=== PATIENT | male | born 1955 | race Caucasian/White ===

== ENCOUNTER 2016-10-07 00:05 | Observation (INO) | payer BC ==
[2016-10-07] VITALS (7 sets, daily range): BP systolic 136–162; BP diastolic 80–96; PULSE 53–79; TEMP 36.3–36.9; O2SAT 94–99; Ht 181.6 cm; Wt 92.4 kg
[~2016-10-07] VITALS: Ht 181.6 cm; Wt 92.4 kg
[2016-10-07] MEDS ORDERED: SODIUM CHLORIDE 0.9% 1000ML 1,000 ML IV SCH (00:32)
[2016-10-07] MEDS ORDERED: ASPIRIN 81 MG CHEW PO STA (00:40)
[2016-10-07] MEDS ORDERED: TAMS0.4C38 PO (00:42)
[2016-10-07] MEDS ORDERED: DUTA0.5C PO (00:43)
[2016-10-07 00:44] LABS: BASO % 0.3 %; BASO ABS # 0.02 K/uL (0-0.2); COMPLETE YES; EOS % 3.3 %; HEMATOCRIT 43.2 % (42-52); IG% 0.1 %; LYMPH % 40.8 %; LYMPH ABS # 2.86 K/uL (1.2-3.4); MEAN CELL VOLUME 86.6 fL (80-100); MEAN CORPUSCULAR HEMOGLOBIN 28.5 pg (25-34); MEAN CORPUSCULAR HGB CONC 32.9 g/dl (32-36); MEAN PLATELET VOLUME 9.6 fL (7.4-10.4); MONO % 8.1 %; NEUT % 47.4 %; PLATELET COUNT 226 K/uL (130-400); RED BLOOD COUNT 4.99 M/uL (4.7-6.1); WHITE BLOOD COUNT 7.01 K/uL (4.8-10.8)
[2016-10-07] MEDS ORDERED: ACET1TAB84 PO (00:44)
[2016-10-07] MEDS ORDERED: NAPR1TAB9 PO (00:45)
[2016-10-07 00:50] LABS: PARTIAL THROMBOPLASTIN RATIO 1.1; PROTHROMBIN TIME (PATIENT) 10.4 SECONDS (9.0-12.0)
--- NOTE | 2016-10-07 00:53 | EMERGENCY ROOM VISIT NOTE ---
History Report prepared by Jeanie: Merrick Rojas Under the Supervision of: Dr. Deandra Washington D.O. First contact with patient: 00:24 Chief Complaint: NEURO SYMPTOMS Stated Complaint: NUMBNESS,NO FEELING IN RIGHT ARM-SUDDEN ONSET History of Present Illness The patient is a 61 year old male who presents to the Emergency Room with complaints of sudden right arm and hand weakness starting around 2300 that lasted for around an hour. The patient states that his strength has returned 75 % of his normal strength. The patient states that his arm felt like it was asleep, though he could always raise his shoulder above his head. The patient denies any abdominal pain or trouble with looking for words. The patient states that he has a family history of heart attacks, though he does not have any family history of strokes. He additionally states that he does not have hypertension, though he does take two different medications for his prostate. He states that he has not taken aspirin for a long time. Source of History: patient Onset: 2300 Position: arm (right), hand (right) Quality: other (weakness) Timing: other (sudden) Associated Symptoms: No abdominal pain Review of Systems See HPI for pertinent positives & negatives. A total of 10 systems reviewed and were otherwise negative. Past Medical & Surgical Medical Problems: (1) Prostatic hypertrophy (2) TIA (transient ischemic attack) Family History FH: heart attack Social History Smoking Status: Never Smoker Marital Status: Housing Status: lives with family Occupation Status: employed Current/Historical Medications Scheduled Dutasteride (Avodart), 0.5 MG PO QPM Tamsulosin Hcl (Flomax), 0.4 MG PO QPM Scheduled PRN Acetaminophen (Tylenol Arthritis Ext Rel), 650 MG PO QAM PRN for Pain Naproxen (Aleve), 220 MG PO QAM PRN for Pain Allergies Coded Allergies: No Known Allergies (Unverified , 07/31/13) Physical Exam Vital Signs Date Time Temp Pulse Resp B/P (MAP) Pulse Ox O2 Delivery O2 Flow Rate FiO2 10/07/16 01:14 61 16 133/86 96 Room Air 10/07/16 00:32 Room Air 10/07/16 00:26 61 10/07/16 00:10 36.5 66 17 151/89 97 Room Air Physical Exam HEENT: Head - normocephalic and atraumatic. Pupils are equal, round, and reactive to light. Extraocular eye muscles are intact and sclera are anicteric. Ears - bilaterally patent canals with noninjected tympanic membranes and no evidence of hemotympanum. Nose - moist nasal mucosa without discharge. Mouth - moist buccal mucosa. Oropharynx is nonerythematous and there is no tonsillar exudate or edema noted. Neck: Supple; no JVD, nuchal rigidity, cervical lymphadenopathy, or auscultated bruits. Heart: Regular rate and rhythm. There is a normal S1 and S2 with no murmurs, clicks, or gallops appreciated. Lungs: Clear to auscultation bilaterally with no wheezes, rales, or rhonchi. Abdomen: Soft, completely nontender, nondistended, with good bowel sounds. There are no palpable pulsatile masses or hepatosplenomegaly. There is no guarding, rigidity, or rebound noted. Extremities: No evidence of cyanosis, clubbing, or edema. There are easily palpable peripheral pulses. Neuro:The patient is awake and alert, oriented to day, time, and place. Right arm: 4/5 muscle strength, librarian special library strength, and flexion of the biceps. Wrist strength and shoulder abduction was 5/5. The patient has equal pedal push and pull. There are no cerebellar signs. Cranial nerves II-X were intact Medical Decision & Procedures ER Provider Diagnostic Interpretation: Radiology results as stated below per my review and the radiologist's interpretation: CT HEAD: No evidence of acute infarct, hemorrhage, mass or edema. Mild mucosal thickening of the paranasal sinuses. No acute osseous abnormality. Radiologist: Krishan Carney MD Laboratory Results 10/07/16 00:25 Red Blood Count 4.99, Mean Corpuscular Volume 86.6, Mean Corpuscular Hemoglobin 28.5, Mean Corpuscular Hemoglobin Concent 32.9, Mean Platelet Volume 9.6, Neutrophils (%) (Auto) 47.4, Lymphocytes (%) (Auto) 40.8, Monocytes (%) (Auto) 8.1, Eosinophils (%) (Auto) 3.3, Basophils (%) (Auto) 0.3, Neutrophils # (Auto) 3.32, Lymphocytes # (Auto) 2.86, Monocytes # (Auto) 0.57, Eosinophils # (Auto) 0.23, Basophils # (Auto) 0.02 10/07/16 00:25 Test 10/07/16 00:25 10/07/16 01:30 White Blood Count 7.01 K/uL (4.8-10.8) Red Blood Count 4.99 M/uL (4.7-6.1) Hemoglobin 14.2 g/dL (14.0-18.0) Hematocrit 43.2 % (42-52) Mean Corpuscular Volume 86.6 fL (80-100) Mean Corpuscular Hemoglobin 28.5 pg (25-34) Mean Corpuscular Hemoglobin Concent 32.9 g/dl (32-36) Platelet Count 226 K/uL (130-400) Mean Platelet Volume 9.6 fL (7.4-10.4) Neutrophils (%) (Auto) 47.4 % Lymphocytes (%) (Auto) 40.8 % Monocytes (%) (Auto) 8.1 % Eosinophils (%) (Auto) 3.3 % Basophils (%) (Auto) 0.3 % Neutrophils # (Auto) 3.32 K/uL (1.4-6.5) Lymphocytes # (Auto) 2.86 K/uL (1.2-3.4) Monocytes # (Auto) 0.57 K/uL (0.11-0.59) Eosinophils # (Auto) 0.23 K/uL (0-0.5) Basophils # (Auto) 0.02 K/uL (0-0.2) RDW Standard Deviation 43.0 fL (36.4-46.3) RDW Coefficient of Variation 13.6 % (11.5-14.5) Immature Granulocyte % (Auto) 0.1 % Immature Granulocyte # (Auto) 0.01 K/uL (0.00-0.02) Prothrombin Time 10.4 SECONDS (9.0-12.0) Prothromb Time International Ratio 1.0 (0.9-1.1) Activated Partial Thromboplast Time 28.2 SECONDS (21.0-31.0) Partial Thromboplastin Ratio 1.1 Anion Gap 6.0 mmol/L (3-11) Est Creatinine Clear Calc Drug Dose 103.5 ml/min Estimated GFR () 107.5 Estimated GFR (Non- 92.7 BUN/Creatinine Ratio 35.9 (10-20) Calcium Level 8.8 mg/dl (8.5-10.1) Total Creatine Kinase 201 U/L (39-308) Creatine Kinase MB 2.5 ng/ml (0.5-3.6) Creatine Kinase MB Ratio 1.2 (0-3.0) Troponin I < 0.015 ng/ml (0-0.045) Urine Color YELLOW Urine Appearance CLEAR (CLEAR) Urine pH 5.5 (4.5-7.5) Urine Specific [place] 1.027 (1.000-1.030) Urine Protein NEG (NEG) Urine Glucose (UA) NEG (NEG) Urine Ketones NEG (NEG) Urine Occult Blood NEG (NEG) Urine Nitrite NEG (NEG) Urine Bilirubin NEG (NEG) Urine Urobilinogen NEG (NEG) Urine Leukocyte Esterase NEG (NEG) Laboratory results per my review. Medications Administered Medications (Trade) Dose Ordered Sig/Syeda Route Start Time Stop Time Status Last Admin Dose Admin Sodium Chloride 1,000 ml @ 50 mls/hr Q20H IV 10/07/16 00:32 10/07/16 05:02 DC 10/07/16 01:28 50 MLS/HR Aspirin (Aspirin Chew) 324 mg NOW STAT PO 10/07/16 00:40 10/07/16 00:41 DC 10/07/16 01:14 324 MG Sodium Chloride 1,000 ml @ 250 mls/hr Q4H STAT IV 10/07/16 01:53 10/07/16 05:03 DC 10/07/16 02:00 250 MLS/HR Procedure Sodium Chloride IV, Aspirin PO ECG Indication: weakness Rate (beats per minute): 54 Rhythm: sinus bradycardia Findings: no acute ischemic change, no ectopy ED Course 0024: Past medical records reviewed. The patient was evaluated in room C9. A complete history and physical exam was performed. Laboratory studies were drawn as above. Twelve-lead EKG was obtained as described above.. The patient went for stat CT scan of the brain as described above. 0040: Aspirin 324mg PO 0153: The patient's BUN was elevated. I ordered which revealed normal muscle strength in both upper extremities. Sodium Chloride 1000 ml @ 250 mls/hr IV. 0154: I reevaluated the patient, and he states that his symptoms have resolved, and I performed another neuro exam on him 0156: Discussed the patient's case with Dr. Arce. The patient will be evaluated for further management. Medical Decision The patient is a 61 year old male who presents to the ED with right sided weakness. Differential diagnosis includes CVA, TIA, cervical radiculopathy, and cervical myelitis. Lab results show: no leukocytosis, normal H&H, BUN elevated at 32, creatinine of 0.8, glucose 97, cardiac biomarkers are normal, coags are normal, urinalysis is normal. This is a 61-year-old male patient presents to the emergency department with sudden onset of right upper extremity weakness. The patient has never had symptoms like this in the past. He is never suffered a stroke or TIA in the past. While here in the emergency department, the patient's muscle strength has returned to normal. This is certainly concerning for an acute TIA and/or embolic event. The patient will be evaluated by the hospitalist Medication Reconcilliation Current Medication List: was personally reviewed by me Blood Pressure Screening Patient's blood pressure: Elevated blood pressure Blood pressure disposition: Elevated BP felt to be situational Consults Time Called: 0147 Consulting Physician: Dr. Arce Returned Call: [phone] Discussed the patient's case with Dr. Arce. The patient will be evaluated for further management. Impression Primary Impression: TIA (transient ischemic attack) Scribe Attestation The scribe's documentation has been prepared under my direction and personally reviewed by me in its entirety. I confirm that the note above accurately reflects all work, treatment, procedures, and medical decision making performed by me. Departure Information Dispostion Being Evaluated By Hospitalist Referrals No Doctor, Assigned (PCP) Patient Instructions My [facility] Problem Qualifiers Primary Impression: TIA (transient ischemic attack) Transient cerebral ischemia type: unspecified Qualified Codes: G45.9 - Transient cerebral ischemic attack, unspecified
[2016-10-07 01:40] LABS: BLOOD UREA NITROGEN 32 mg/dl (7-18); BUN/CREATININE RATIO 35.9 (10-20); CALCIUM 8.8 mg/dl (8.5-10.1); CARBON DIOXIDE 26 mmol/L (21-32); CHLORIDE 110 mmol/L (98-107); CREATININE 0.88 mg/dl (0.60-1.40); GLUCOSE 97 mg/dl (70-99); SODIUM 142 mmol/L (136-145)
[2016-10-07 01:45] LABS: CKMB/CK RATIO 1.2 (0-3.0)
[2016-10-07 01:45] LABS: URINE APPEARANCE CLEAR (CLEAR); URINE BILIRUBIN NEG (NEG); URINE COLOR YELLOW; URINE NITRITE NEG (NEG); URINE PH 5.5 (4.5-7.5); URINE SPECIFIC GRAVITY 1.027 (1.000-1.030); UROBILINOGEN NEG (NEG); ZZUR CULT IF INDIC CLEAN CATCH NO
[2016-10-07 01:51] LABS: MANUAL MICROSCOPIC REQUIRED? NO; REVIEW REQ? NO
[2016-10-07] MEDS ORDERED: SODIUM CHLORIDE 0.9% 1000ML 1,000 ML IV STA (01:53)
--- NOTE | 2016-10-07 02:11 | History and Physical ---
History & Physical Date & Time of Service: Oct 07, 2016 at 02:11 Chief Complaint: Numbness,No Feeling In Right Arm-Sudden Onset Primary Care Physician: Dharmesh Jones III, M.D. History of Present Illness Source: patient this is a 61 yo Healthy male presented to ER with transient episode of right arm numbness , unable to move the limb As per patient at baseline he is very active , rides bicycle 3 miles to work at [employer] no prior hx of Stoke or CAD no family hx of CVA or CAD last night he was watching TV from 8 pm to 11 pm noticed his right hand and arm became limp , he can not lift his right hand or move the fingers did not had any visual symptoms , no facial drop , no confusion ,no Dysarthria , no weakness on lower ext he could lift his right arm above shoulder , but had no movement at elbow , wrist or fingers he walked to living room to his -his also noted his right arm hanging with wrist deviated inside , pt tried to move his fingers but unable to do so , had no sensation Decided to come to ED with concern for possible stroke like symptom Pt able to walk and get into the car as his was driving -he gradually started to regain sensation in rt hand and arm , able to move the fingers after arrival to ED almost 75-80% symptoms were resolved , except for slight numbness CT Head was unremarkable EKG was NSR during my interview , pt was completely symptom free Motor strength on rt hand and arm was 5/5 with intact fine motor skills , normal sensation no other weakness or deficit noted speech was clear with intact mentation Family History FH: heart attack Social History Smoking Status: Never Smoker Marital Status: Occupational Status: employed Multi-Drug Resistant Organisms History of MDRO: No Allergies Coded Allergies: No Known Allergies (Unverified , 07/31/13) Home Medications Scheduled Dutasteride (Avodart), 0.5 MG PO QPM Tamsulosin Hcl (Flomax), 0.4 MG PO QPM Scheduled PRN Acetaminophen (Tylenol Arthritis Ext Rel), 650 MG PO QAM PRN for Pain Naproxen (Aleve), 220 MG PO QAM PRN for Pain Review of Systems Constitutional: + weakness, + problem reported (rt arm and hand weakness - resolved ) Respiratory: No cough, No sputum, No wheezing, No shortness of breath, No dyspnea on exertion, No dyspnea at rest, No hemoptysis, No problem reported Cardiovascular: No chest pain, No orthopnea, No PND, No edema, No claudication , No palpitations, No problem reported Abdomen: No pain, No nausea, No vomiting, No diarrhea, No constipation, No GI bleeding, No problem reported Musculoskeletal: + problem reported (rt hand /numbness for approx 45 -50 mins - resolved ) Neurologic: + weakness (rt upper ext transient weakness ), + numbness/tingling (rt upper ext ) Physical Exam Vital Signs Date Time Temp Pulse Resp B/P (MAP) Pulse Ox O2 Delivery O2 Flow Rate FiO2 10/07/16 01:14 61 16 133/86 96 Room Air 10/07/16 00:32 Room Air 10/07/16 00:26 61 10/07/16 00:10 36.5 66 17 151/89 97 Room Air General Appearance: WD/WN, no apparent distress Head: normocephalic, atraumatic Eyes: normal inspection, sclerae normal Neck: supple, no JVD, no carotid bruits Respiratory/Chest: chest non-tender, lungs clear, normal breath sounds, no respiratory distress Cardiovascular: regular rate, rhythm Abdomen/GI: normal bowel sounds, non tender, soft Extremities/Musculoskelatal: normal inspection, no calf tenderness, normal capillary refill, no pedal edema Neurologic/Psych: field merchandiser II-XII nml as tested, no motor/sensory deficits, alert, normal mood/affect, normal reflexes, oriented x 3 Diagnostics Laboratory Results Results Past 24 Hours Test 10/07/16 00:25 10/07/16 01:30 Range/Units White Blood Count 7.01 4.8-10.8 K/uL Red Blood Count 4.99 4.7-6.1 M/uL Hemoglobin 14.2 14.0-18.0 g/dL Hematocrit 43.2 42-52 % Mean Corpuscular Volume 86.6 80-100 fL Mean Corpuscular Hemoglobin 28.5 25-34 pg Mean Corpuscular Hemoglobin Concent 32.9 32-36 g/dl Platelet Count 226 130-400 K/uL Mean Platelet Volume 9.6 7.4-10.4 fL Neutrophils (%) (Auto) 47.4 % Lymphocytes (%) (Auto) 40.8 % Monocytes (%) (Auto) 8.1 % Eosinophils (%) (Auto) 3.3 % Basophils (%) (Auto) 0.3 % Neutrophils # (Auto) 3.32 1.4-6.5 K/uL Lymphocytes # (Auto) 2.86 1.2-3.4 K/uL Monocytes # (Auto) 0.57 0.11-0.59 K/uL Eosinophils # (Auto) 0.23 0-0.5 K/uL Basophils # (Auto) 0.02 0-0.2 K/uL RDW Standard Deviation 43.0 36.4-46.3 fL RDW Coefficient of Variation 13.6 11.5-14.5 % Immature Granulocyte % (Auto) 0.1 % Immature Granulocyte # (Auto) 0.01 0.00-0.02 K/uL Prothrombin Time 10.4 9.0-12.0 SECONDS Prothromb Time International Ratio 1.0 0.9-1.1 Activated Partial Thromboplast Time 28.2 21.0-31.0 SECONDS Partial Thromboplastin Ratio 1.1 Sodium Level 142 136-145 mmol/L Potassium Level 4.0 3.5-5.1 mmol/L Chloride Level 110 98-107 mmol/L Carbon Dioxide Level 26 21-32 mmol/L Anion Gap 6.0 3-11 mmol/L Blood Urea Nitrogen 32 7-18 mg/dl Creatinine 0.88 0.60-1.40 mg/dl Est Creatinine Clear Calc Drug Dose 103.5 ml/min Estimated GFR () 107.5 Estimated GFR (Non- 92.7 BUN/Creatinine Ratio 35.9 10-20 Random Glucose 97 70-99 mg/dl Calcium Level 8.8 8.5-10.1 mg/dl Total Creatine Kinase 201 39-308 U/L Creatine Kinase MB 2.5 0.5-3.6 ng/ml Creatine Kinase MB Ratio 1.2 0-3.0 Troponin I < 0.015 0-0.045 ng/ml Urine Color YELLOW Urine Appearance CLEAR CLEAR Urine pH 5.5 4.5-7.5 Urine Specific [place] 1.027 1.000-1.030 Urine Protein NEG NEG Urine Glucose (UA) NEG NEG Urine Ketones NEG NEG Urine Occult Blood NEG NEG Urine Nitrite NEG NEG Urine Bilirubin NEG NEG Urine Urobilinogen NEG NEG Urine Leukocyte Esterase NEG NEG Diagnostic Radiology CT HEAD WITH OUT CONTRAST : no acute change EKG Sinus bradycardia Incomplete right bundle branch block Borderline ECG When compared with ECG of 25-JAN-2006 17:14, No significant change was found Impression Assessment and Plan TIA RULE OUT CVA : presented with motor weakness of rt hand and arm for approx 45 -50 mins happened 11 pm yesterday symptom resolved spontaneously no residual neurological deficit noted CT head w/out contrast negative for acute change MRI of brain with and without contrast /MRA of brain ordered Carotid Doppler for evaluation of carotid stenosis /plaque pt denies of any complain of palpitation or SOB will be monitored in tele for evaluation of arrhythmia pt will be started on Aspirin may need addition of Plavix if MRI finding suggestive of stroke ordered for fasting lipid panel .Hb A1 c in AM lab for risk stratification ECHO for evaluation for cardiac thrombus Neurology eval requested HX OF BPH : cont out pt meds FULL CODE DVT PROPHYLAXIS : low risk very active at baseline scd and teds ambulate DISPOSITION ; expected to be discharged home when medically stable Level of Care Telemetry Resuscitation Status FULL RESUSCITATION VTE Prophylaxis Given or contraindicated: T.E.D. Stockings, SCD's
[2016-10-07] MEDS ORDERED: POLYETHYLENE (MIRALAX) 17 GM PACK PO PRN (02:30)
[2016-10-07] MEDS ORDERED: NAPROXEN 250 MG TAB PO PRN (02:30)
[2016-10-07] MEDS ORDERED: ALUMINUM/MAGNESIUM/SIMETH (MAALOX MAX) 30 ML UDC PO PRN (02:30)
[2016-10-07] MEDS ORDERED: MAGNESIUM HYDROXIDE SUSP 30 ML UDC PO PRN (02:30)
[2016-10-07] MEDS ORDERED: ONDANSETRON INJ 2 MG/ML 2 ML VIAL IV PRN (02:30)
[2016-10-07] MEDS ORDERED: PHARMACIST DISCHARGE MED REC CONSULT PRN (02:30)
[2016-10-07] MEDS ORDERED: IV FLUIDS COMPLETED PRN (03:15)
[2016-10-07] MEDS ORDERED: GADAVIST IV PRN (04:30)
--- NOTE | 2016-10-07 04:57 | Progress Note ---
Progress Note Date of Service Oct 07, 2016. Progress Note got call from Radiologist at [facility] pt had tiny areas of infracts along left anterior cerebral artery and Left post cerebral artery along watershed distribution area MRA of brain unremarkable presented with transient motor weakness of Rt arm -symptom has resolved in setting of acute infract -will cont Aspirin /Plavix added high intensity statin Lipitor 80mg daily note of some tremor /twitching of rt limb noted during MRI scan EEG ordered to R/O Seizure neurology eval requested
--- NOTE | 2016-10-07 06:54 | DIAGNOSTIC IMAGING REPORT ---
CT OF THE HEAD WITHOUT CONTRAST CLINICAL HISTORY: Stroke. Right arm numbness. COMPARISON STUDY: No previous studies for comparison. CT DOSE: 537.48 mGy.cm TECHNIQUE: Helical axial images of the head were obtained without IV contrast. Automated exposure control was utilized for the study. A dose lowering technique was utilized adhering to the principles of ALARA. FINDINGS: No acute intracranial hemorrhage, midline shift or mass effect is present. Ventricular system is normal. Basilar cisterns are patent. No extra-axial collections are present. Wong-white differentiation is maintained. There are no findings to suggest acute territorial infarct or acute dural sinus thrombosis. Visualized portions of the mastoid air cells are clear. There is mild ethmoid sinus mucosal thickening. There are no calvarial abnormalities. IMPRESSION: No acute intracranial findings. Electronically signed by: Juan Antonio Aparicio M.D. 10/07/2016 6:52 AM Dictated Date/Time: 10/07/2016 6:51 AM
--- NOTE | 2016-10-07 07:17 | DIAGNOSTIC IMAGING REPORT ---
Brain MRA HISTORY: Right arm numbness. TECHNIQUE: 3-D [id number] MRA of the brain was performed without contrast. COMPARISON STUDY: Head CT 10/07/2016. FINDINGS: Visualized intracranial internal carotid arteries, distal vertebral arteries, and basilar artery are widely patent. There is no significant stenosis, occlusion, or aneurysm seen within the bilateral ACAs, MCAs, or plant operations manager. IMPRESSION: No significant stenosis, occlusion, or aneurysm within the [place] of [place]. Electronically signed by: Josue Johnson M.D. 10/07/2016 7:15 AM Dictated Date/Time: 10/07/2016 7:12 AM
--- NOTE | 2016-10-07 07:20 | DIAGNOSTIC IMAGING REPORT ---
CAROTID ARTERY ULTRASOUND CLINICAL HISTORY: Stroke COMPARISON STUDY: None. TECHNIQUE: Real-time, grayscale, and color Doppler sonography of the carotid and vertebral arteries was performed. Images were viewed in the transverse and longitudinal planes. FINDINGS: There is extensive atherosclerotic plaque present within the proximal left internal carotid artery. Velocity measurements are listed below. COMMON CAROTID PEAK SYSTOLIC VELOCITY (CM/S): RIGHT 79 LEFT 75 ICA PEAK SYSTOLIC VELOCITY (CM/S): RIGHT 67 LEFT 299 The systolic ratio between the left internal to common carotid artery is elevated at 4. Antegrade flow is seen in the vertebral arteries. The external carotid arteries are patent. Blood pressure could not be obtained in this patient. IMPRESSION: Findings suggestive of greater than 70% stenosis of the proximal left internal carotid artery. Electronically signed by: Juan Antonio Aparicio M.D. 10/07/2016 7:19 AM Dictated Date/Time: 10/07/2016 7:17 AM
--- NOTE | 2016-10-07 07:21 | DIAGNOSTIC IMAGING REPORT ---
MRI OF THE BRAIN COMBO CLINICAL HISTORY: Right arm numbness. Stroke like symptoms. COMPARISON STUDY: CT of the brain dated 10/07/2016. TECHNIQUE: MRI of the brain was performed utilizing various T1 and T2-weighted sequences in the axial, sagittal, and coronal planes. Contrast-enhanced sequences were acquired following the administration of 9 cc of Gadavist. FINDINGS: Brain parenchyma: There are small foci of restricted diffusion identified in the left occipital lobe consistent with acute to subacute ischemia. Additional punctate foci of ischemia are identified in the left posterior parietal and occipital lobes. There is no hemorrhage or mass effect. No enhancing mass lesion is identified on the postcontrast images. There is minimal periventricular microangiopathic disease. No extra-axial fluid collection is seen. The cerebellar tonsils are normal in configuration. Ventricles, sulci, and cisterns: Normal in configuration. Pituitary and sella: Unremarkable. Intracranial vasculature: Normal flow voids are maintained at the skull base. Orbits: The bony orbits are grossly intact. Orbital contents are normal in appearance. Sinuses and mastoids: There is mild mucosal thickening in the left maxillary antrum. The remaining paranasal sinuses and the mastoid air cells are clear. Calvarium: Unremarkable. Cervical cord: Partially visualized cervical spinal cord is normal in morphology and signal intensity. IMPRESSION: 1. There is a small acute to subacute infarct identified in the left occipital lobe. 2. Additional punctate foci of acute ischemia are seen in the left parietal and occipital lobes. 3. There is no hemorrhage or mass effect. Electronically signed by: Lele Kaiser M.D. 10/07/2016 7:19 AM Dictated Date/Time: 10/07/2016 7:14 AM
[2016-10-07] MEDS: AVODART~ORDER AWAITING ACTION SCH ×3 (08:00→23:33)
[2016-10-07 08:01] LABS: CHOLESTEROL/HDL RATIO 3.5
[2016-10-07 08:04] LABS: ESTIMATED AVERAGE GLUCOSE 126 mg/dl; HA1C FLAG Normal (Normal)
[2016-10-07] MEDS: CLOPIDOGREL BISULFATE 75 MG TAB PO SCH (08:12)
[2016-10-07] MEDS: ASPIRIN 81 MG ECTAB PO SCH (08:12)
[2016-10-07] MEDS: ATORVASTATIN 40 MG TAB PO SCH (08:13)
[2016-10-07] MEDS ORDERED: HEPARIN SOD 5000 UNIT/0.5 ML CARP SQ SCH (09:00)
--- NOTE | 2016-10-07 14:15 | ELECTROENCEPHALOGRAPH REPORT ---
REQUESTING PHYSICIAN: Dr. Arce. CLINICAL DIAGNOSIS: Possible seizure activity occurring in the setting of acute left frontal and occipital infarction. ELECTROENCEPHALOGRAM DIAGNOSIS: Essentially normal during wakefulness and drowsiness. DESCRIPTION OF TRACING: This EEG was done as a bedside recording on a man by video analysis who appeared to be initially drowsy. Later on in the tracing he appears to be more awake and EEG does reflect this. Photic stimulation is performed. Hyperventilation is not. Drowsiness is recorded, but fully developed stages of sleep are not seen. Under these conditions, the initial EEG appears to be in a transition state between drowsiness and wakefulness with alpha rhythm transitioning into theta and maximum posterior head regions and bilaterally symmetrical. Polymorphic mid to lower frequency theta activity with occasional waveforms in the delta range are also seen. As the tracing proceeds this activity begins to shift more into a clear wakefulness pattern with eventual development of a background rhythm in the alpha range of 9-10 Hz, amplitude of about 30 microvolts and again symmetry in the posterior head regions. The theta activity seen previously showed some higher frequencies and the delta activity begins to disappear. There are no lateralizing features. Beta activity is seen bifrontally. There are no potentially epileptiform patterns noted either in a focal or generalized fashion. Photic stimulation provokes a modest driving response without photomyogenic or photoparoxysmal component. INTERPRETATION: This EEG is essentially normal during wakefulness and drowsiness without evidence for focal or generalized encephalopathy and without evidence for potentially epileptogenic activity.
[2016-10-07] MEDS ORDERED: OPTIRAY 320 IV PRN (15:30)
--- NOTE | 2016-10-07 15:52 | NEUROLOGY CONSULTATION ---
DATE OF CONSULTATION: 10/07/2016 DATE OF CONSULTATION: 10/07/2016 HISTORY OF PRESENT ILLNESS: Shakeel is 61 years old. Normally follows with Dr. Dharmesh Jones, but sees Gabby Levar most of the time and has been in pretty good health overall. He presented last evening with the abrupt onset of right hand and arm limpness, numbness and clumsiness. He did not have any headaches, visual symptoms, problems with speech or swallowing. No language issues and no problems with his right leg. He began to improve after about an hour or so and he presented to the Emergency Room. By the time he arrived, he was back to about 80% of his baseline. CT head was negative and EKG did not show any atrial fibrillation and a subsequent MRIs and imaging studies have shown several small punctate areas of probable embolic infarction and involving the left middle cerebral artery distribution posteriorly and anteriorly. He has had an unremarkable intracranial MRA, but the carotid duplex show a 70% stenosis of the left internal carotid with extensive plaque formation. He has been appropriately placed on aspirin and Plavix and has had no further events. The past history reveals no defined medical problems other than some BPH and some arthritis. He takes Avodart and Flomax. He does not take aspirin on a regular basis. He was apparently taking and then decided not to. He will take Naprosyn as needed for some arthritic issues in his knees and/or Tylenol, but does so rarely. He has no coded drug allergies. FAMILY HISTORY: Positive for heart attack I believe in his father. SOCIAL HISTORY: Reveals him to be a never smoker. He is . He does not consume significant amount of ethanol and he is currently employed. REVIEW OF SYSTEMS: Reveals only the weakness of the right hand which has now totally resolved, again without headaches or other complaints referable to head, eyes, ears, nose and throat. He denies any palpitations, chest pain, dyspnea, paroxysmal nocturnal dyspnea, cough, hemoptysis, issues with constipation and diarrhea. There has been no hematemesis or hematuria. He does not have any issues other than some BPH and has no problems with the extremities other than some arthritis. Neurologically he denies a history of headaches, similar neurologic events, neck pain, loss or alteration of consciousness, seizure activity, etc. PHYSICAL EXAMINATION: VITAL SIGNS: His blood pressure 133/86, pulse was 61, respirations were 16. GENERAL: He was well-developed, well-nourished and did not appear to be in any distress. HEAD, EYES, EARS, NOSE, AND THROAT: Normal. NECK: Supple. I did not hear any carotid bruits today. LUNGS: Clear. HEART: Had a regular rhythm without murmurs or gallops. ABDOMEN: Soft, nontender, normal bowel sounds. EXTREMITIES: Free of edema. Peripheral pulses are normal. NEUROLOGIC: He is absolutely normal. He is awake, alert, oriented in 3 spheres. His speech is clear. There were no aphasic tendencies. He can repeat, read, and pronounce words quickly and identify objects in the room. Facial motility and strength is normal. Facial sensation is normal. Visual frnech are full. Extraocular movements are normal. Fundi are poorly seen. Facial sensation is intact. There is no facial asymmetry. I do not hear any carotid bruits. There is no drift or pronation sign. Gait, station and coordination testing is normal without spasticity or ataxia. There is no drift or pronation, tremors, tics, choreiform activity. Reflexes are 1+ and symmetrical. Toes are downgoing. No Pancho's signs are seen. Strength is excellent. There is no atrophy. No fasciculations. Sensory examination intact to vibration, light touch and temperature. At this point, my suspicions are that this man has had a series of embolic events originating from the left internal carotid artery, perhaps due to plaque ulceration, perhaps due to accumulation of platelet fibrin material. The issue is academic. His treatment right now is appropriate with aspirin and Plavix for 3 months. I think he is going to need imaging studies to define the vascular anatomy more thoroughly than a duplex and I have discussed the case with Dr. Sue. I think we need to get vascular surgery involved and defer to them regarding whether they want an MRA or CTA and I would tend to prefer the latter. 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 He may well need a vascular surgery intervention within the next several weeks. He has no clinical deficits. I think the current literature would support an aggressive early approach in the setting of a symptomatic plaque. We will see how things go over the next day and hopefully we can get things arranged before the weekend. He really needs to go home to provide care for his wceolo-uh-leb who appears to be stable, so he may be able to be discharged tomorrow if we can get everything in line. LAKEISHA
--- NOTE | 2016-10-07 16:06 | Surgery Consultation ---
Consultation Date of Service Oct 07, 2016. Chief Complaint Transient right arm weakness History of Present Illness The patient is a 61 year old male who developed right arm weakness prior to admission. It came on suddenly and resolved in 30 - 40 minutes. This was the first episode. He did not have any involvement of his right leg, face, or speech. He is a healthy active person. Only medication is for his prostate. Vitals Vital Signs Past 12 Hours Date Time Temp Pulse Resp B/P (MAP) Pulse Ox O2 Delivery O2 Flow Rate FiO2 10/07/16 15:44 36.3 69 16 161/91 (114) 95 10/07/16 15:29 Room Air 10/07/16 12:33 Room Air 10/07/16 11:38 36.4 62 16 146/86 (106) 96 Room Air 10/07/16 07:46 99 Room Air 10/07/16 07:39 36.3 53 18 156/82 (106) 99 Room Air 10/07/16 05:12 36.3 68 16 162/96 99 Room Air Allergies Coded Allergies: No Known Allergies (Unverified , 07/31/13) Home Medications Scheduled Dutasteride (Avodart), 0.5 MG PO QPM Tamsulosin Hcl (Flomax), 0.4 MG PO QPM Scheduled PRN Acetaminophen (Tylenol Arthritis Ext Rel), 650 MG PO QAM PRN for Pain Naproxen (Aleve), 220 MG PO QAM PRN for Pain Problem List Medical Problems: (1) Prostatic hypertrophy (2) TIA (transient ischemic attack) Surgical / Medical History Hx Cardiac Surgery: No Hx Abdominal Surgery: Yes (hernia repair) Hx Cancer Surgery: No Hx Thoracic Surgery: No Hx Orthopedic: No Hx Urinary Tract Surgery: No HX Other Surgery: No Past Medical/Surgical History: CVA/TIA, Male Genitourinary Prob. Family History FH: heart attack Social History Smoking Status: Never Smoker Hx Tobacco Use In Past Year?: No Hx Alcohol Use - Type & Amnt: Yes (occasional drink at home) Hx Substance Use -Type & Amnt: No Review of Systems Constitutional: No chills, No diaphoresis, No fever, No malaise, No weakness, No weight gain, No weight loss, No sweats, No fatigue, No problem reported Eyes: No discharge, No blurred vision, No double vision, No eye pain, No tearing, No itching, No photophobia, No redness, No visual changes, No dryness, No irritation, No problem reported ENMT: No dental pain, No loss of hearing, No epistaxis, No ear discharge, No ear pain, No gum swelling, No mouth pain, No mouth swelling, No nasal congestion , No nasal pain, No rhinorrhea, No stridor, No tinnitus, No sore throat, No throat swelling, No problem reported Respiratory: No cough, No cyanosis, No POTTS, No hemoptysis, No orthopnea, No PND , No short of breath, No sputum production, No stridor, No wheezing, No dyspnea , No problem reported Cardiovascular: No chest pain, No chest tightness, No chest pressure, No palpitations, No syncope, No diaphoresis, No edema, No intermittent claudication , No orthopnea, No cyanosis, No mumur, No lightheadedness, No paroxysmal nocturnal dyspnea, No problem reported Gastrointestinal: No abdominal pain, No constipation, No diarrhea, No nausea, No vomiting, No anorexia, No appetite changes, No belching, No flatulence, No food intolerance, No hematemesis, No hemorrhoids, No hematochezia, No stool changes, No heartburn, No indigestion, No dysphagia, No rectal bleeding, No problem reported Genitourinary - Male: + difficulty urinating, No impotence, No penile discharge , No penile itching, No rash, No testicular pain, No testicular swelling, No hematuria, No problem reported Musculoskeletal: No back pain, No gout, No joint pain, No joint swelling, No muscle pain, No muscle stiffness, No muscle weakness, No neck pain, No problem reported Neurologic: No dizziness, No weakness, No headache, No lethargy, No numbness, No paresthesia, No pre-existing deficit, No seizures, No tics, No tingling, No tremors, No vertigo, No memory loss, No LOC, No problem reported Physical Exam Constitutional: General Apperance: heathly-appearing, well-nourished, well-developed Level of Distress: NAD Psychiatric: Mental Status: active & alert, normal mood, normal affect Orientation: oriented except where noted, to time, to place, to person Memory: recent memory normal, remote memory normal Neck: supple Lungs: Auscultation: breath sounds normal Cardiovascular: Heart Auscultation: RRR Peripheral Pulses: Pulses: full and equal Abdomen: Inspection & Palpation: soft Musculoskeletal: normal Extremities: Upper Right: no cyanosis, no edema, no varicosities, no palpable cord, no clubbing, no ulcers, no mottling Upper Left: no cyanosis, no edema, no palpable cord, no clubbing, no ulcers , no mottling Lower Right: no cyanosis, no edema, no varicosities, no palpable cord, no clubbing, no ulcers, no mottling Lower Left: no cyanosis, no edema, no palpable cord, no clubbing, no ulcers , no mottling, varicosities Neurologic: Cranial Nerves: grossly intact Sensation: grossly intact Assessment and Plan Imp: Left carotid stenosis TIA Plan: Patient for CTA and echo today. If CTA confirms >70% carotid stenosis, would recommend CEA of the left carotid on Monday. I have discussed the risks options and benefits of the procedure with the patient. The patient understands the risks options and benefits and agrees to the procedure. Thank you very much for letting me participate in the care of this patient.
--- NOTE | 2016-10-07 16:31 | DIAGNOSTIC IMAGING REPORT ---
NECK ANGIO WITH CONTRAST CLINICAL HISTORY: 61 years-old Male presenting with left carotid stenosis. TECHNIQUE: Multidetector CT of the neck was performed after the administration of intravenous contrast. IV contrast: 119 mL of Optiray 320 A dose lowering technique was used consistent with the principles of ALARA (as low as reasonably achievable). COMPARISON: Doppler ultrasound from 10/07/2016. CT DOSE (mGy.cm): The estimated cumulative dose is 582.80 mGy.cm. FINDINGS: [employer] topogram: Unremarkable. Three-vessel aortic arch. Tortuosity of the proximal cervical vessels could suggest chronic hypertension. Right common carotid artery patent. Mild calcified atherosclerotic plaque at the right carotid bulb. No significant narrowing of the right internal carotid artery, which is widely patent to the cavernous portion. Left common carotid artery patent with noncalcified and calcified atherosclerotic plaque resulting in narrowing of the carotid bulb. The minimal diameter measures 3 to 4 mm. This narrows both the origin of the left internal and external carotid arteries. The maximal degree of left internal carotid artery narrowing is noted as a consequence of this carotid bulb plaque with a minimal diameter of 3 mm in comparison to the normal distal diameter of 6 mm (at least 50% stenosis). The remainder of the left internal carotid artery is patent to the cavernous portion. Codominant vertebral arteries are widely patent at their origins and along their courses. Limited intracranial evaluation within normal limits. Prominent arachnoid granulation projecting into the left transverse dural venous sinus area Paranasal sinuses with bilateral mucosal thickening of the maxillary sinuses. Degenerative changes of the cervical spine. Lung apices clear. IMPRESSION: Focal narrowing (at least 50% stenosis) at the origin of the left internal carotid artery as a consequence of calcified and noncalcified atherosclerotic plaque. Electronically signed by: Jason Leung M.D. 10/07/2016 4:30 PM Dictated Date/Time: 10/07/2016 4:25 PM
[2016-10-07] MEDS ORDERED: ACETAMINOPHEN 500 MG TAB PO PRN ×2 (19:00→19:30)
[2016-10-07] MEDS ORDERED: NURSING VERBAL MED ORDER ONE (19:15)
[2016-10-07] MEDS ORDERED: TAMSULOSIN HCL 0.4 MG CAP PO SCH (21:00)
[2016-10-08 04:39] VITALS: BP 131/83; PULSE 54; TEMP 36.4; O2SAT 96
[2016-10-08 07:09] VITALS: BP 119/77; PULSE 73; TEMP 36.5; O2SAT 96
[2016-10-08] MEDS: AVODART~ORDER AWAITING ACTION SCH (08:00)
[2016-10-08 08:06] LABS: BUN/CREATININE RATIO 20.2 (10-20); CALCIUM 8.7 mg/dl (8.5-10.1); CREATININE 0.89 mg/dl (0.60-1.40); POTASSIUM 3.7 mmol/L (3.5-5.1)
[2016-10-08] MEDS: ATORVASTATIN 40 MG TAB PO SCH (08:13)
[2016-10-08] MEDS: CLOPIDOGREL BISULFATE 75 MG TAB PO SCH (08:13)
[2016-10-08] MEDS: ASPIRIN 81 MG ECTAB PO SCH (08:13)
[2016-10-08 11:25] VITALS: BP 149/88; PULSE 57; TEMP 36.5; O2SAT 95
--- NOTE | 2016-10-08 13:21 | ECHOCARDIOGRAM REPORT ---
*NOTICE TO RECEIVING CONSTITUTION PARTY AGENCY This information is strictly Confidential and protected under [place] law. [place] law prohibits you from making any further disclosure of this information unless further disclosure is expressly permitted by the written consent of the person to whom it pertains or is authorized by law. A general authorization for the release of medical or other information is not sufficient for this purpose. Hospital accepts no responsibility if the information is made available to any other person, INCLUDING THE PATIENT. Interpretation Summary * Name: VIRGILIO HANSEN Study Date: 10/08/2016 10:00 AM BP: 131/83 mmHg * Patient Location: [facility] HR: 58 * : 1955 (M/d/yyyy) Gender: Male Height: 71 in * Age: 61 yrs Ethnicity: CA Weight: 208 lb * Ordering Physician: Melania Arce * Referring Physician: Self, Referred * Performed By: [facility] RDCS * * Reason For Study: Cerebral ischemia/embolus * BSA: 2.1 m2 * -- Conclusions -- * The left ventricle is normal in size. * There is normal left ventricular wall thickness. * The left ventricular wall motion is normal. * Left ventricular systolic function is normal. * Ejection Fraction = 60-65%. * Aortic valve sclerosis mild, without significant aortic valvular stenosis. * Trace aortic regurgitation. * There is trace mitral regurgitation. * There is trace tricuspid regurgitation. * Doppler findings do not suggest pulmonary hypertension. * The interatrial septum is intact with no evidence for an atrial septal defect. * Injection of contrast documented no interatrial shunt. Procedure Details * A complete two-dimensional transthoracic echocardiogram was performed (2D, M-mode, Doppler and color flow Doppler). * The study was technically adequate. * A saline contrast injection was performed to assess for cardiac shunting. * The injection was performed through an intravenous line in the left arm. * The attending nurse who injected the saline contrast was GABINO Brenner. * A total of 10 cc of agitated saline was given. Left Ventricle * The left ventricle is normal in size. * There is normal left ventricular wall thickness. * Left ventricular systolic function is normal. * Ejection Fraction = 60-65%. * The left ventricular wall motion is normal. Right Ventricle * The right ventricle is normal in size and function. Atria * The left atrial size is normal. * Right atrial size is normal. * The interatrial septum is intact with no evidence for an atrial septal defect. * Injection of contrast documented no interatrial shunt. Mitral Valve * The mitral valve anatomy is normal. * There is no mitral valve stenosis. * There is trace mitral regurgitation. Tricuspid Valve * The tricuspid valve anatomy is normal. * There is no tricuspid stenosis. * There is trace tricuspid regurgitation. * Doppler findings do not suggest pulmonary hypertension. Aortic Valve * The aortic valve is trileaflet. * Aortic valve sclerosis mild, without significant aortic valvular stenosis. * Trace aortic regurgitation. Pulmonic Valve * The pulmonic valve is not well visualized. Great Vessels * The aortic root is normal size. Pericardium/Pleural * There is no pericardial effusion. Great Vessels * Normal inferior vena cava diameter and respiratory variation suggests normal central venous pressure. MMode 2D Measurements and Calculations IVSd 0.91 cm IVSs 1.4 cm LVIDd 4.3 cm LVIDs 2.4 cm LVPWd 0.89 cm LVPWs 1.5 cm IVS/LVPW 1.0 FS 44.3 % EDV(Teich) 81.5 ml ESV(Teich) 19.6 ml EF(Teich) 75.9 % EDV(cubed) 77.6 ml ESV(cubed) 13.4 ml EF(cubed) 82.7 % % IVS thick 55.1 % % LVPW thick 67.0 % LV mass(C)d 121.3 grams LV mass(C)dI 56.6 grams/m\S\2 LV mass(C)s 110.9 grams LV mass(C)sI 51.7 grams/m\S\2 SV(Teich) 61.9 ml SI(Teich) 28.9 ml/m\S\2 SV(cubed) 64.2 ml SI(cubed) 30.0 ml/m\S\2 Ao root diam 3.5 cm Ao root area 9.6 cm\S\2 ACS 1.9 cm LA dimension 4.3 cm asc Aorta Diam 3.3 cm LA/Ao 1.2 LVOT diam 2.2 cm LVOT area 3.7 cm\S\2 LVAd ap4 29.0 cm\S\2 LVLd ap4 8.0 cm EDV(MOD-sp4) 87.0 ml LVAs ap4 15.9 cm\S\2 LVLs ap4 6.4 cm ESV(MOD-sp4) 33.0 ml EF(MOD-sp4) 62.1 % LVAd ap2 27.1 cm\S\2 LVLd ap2 7.9 cm EDV(MOD-sp2) 77.0 ml LVAs ap2 15.7 cm\S\2 LVLs ap2 6.6 cm ESV(MOD-sp2) 30.0 ml EF(MOD-sp2) 61.0 % SV(MOD-sp4) 54.0 ml SI(MOD-sp4) 25.2 ml/m\S\2 SV(MOD-sp2) 47.0 ml SI(MOD-sp2) 21.9 ml/m\S\2 Doppler Measurements and Calculations MV E max cathy 63.6 cm/sec MV A max cathy 48.2 cm/sec MV E/A 1.3 MV dec time 0.20 sec Ao V2 max 131.5 cm/sec Ao max PG 6.9 mmHg Ao max PG (full) 3.2 mmHg ELIEZER(V,A) 2.7 cm\S\2 ELIEZER(V,D) 2.7 cm\S\2 AI max cathy 218.5 cm/sec AI max PG 19.3 mmHg AI dec slope 71.1 cm/sec\S\2 AI P1/2t 900.1 msec LV V1 max PG 3.7 mmHg LV V1 max 96.3 cm/sec PA V2 max 132.8 cm/sec PA max PG 7.1 mmHg PA acc slope 514.0 cm/sec\S\2 PA acc time 0.12 sec PI end-d cathy 87.3 cm/sec TR max cathy 217.6 cm/sec PA pr(Accel) 26.7 mmHg
--- NOTE | 2016-10-08 14:07 | Progress Note ---
Internal Med Progress Note Date of Service: Oct 07, 2016. Provider Documentation: SUBJECTIVE: The patient was seen and examined Very active physically Admitted with sudden numbness of the right UE Condition improve on the way to ER and resolved thereafter OBJECTIVE: Vital Signs-as noted below Exam: General-No distress Eyes-normal ENT-normal Neck-supple Lungs-Clear to ausucltate bilaterally Heart-Regular,no murmur appreciated Abdomen-Benign,no masses,bowel sound present Extremities-NO edema Neuro-AAOx3 No focal Neuro deficit Lab data as noted below. ASSESSMENT & PLAN: TIA ::TO RULE OUT CVA : -presented with motor weakness of rt hand and arm for approx 45 -50 mins -happened 11 pm yesterday -symptom resolved spontaneously -no residual neurological deficit noted -CT head w/out contrast negative for acute change -MRI of brain with and without contrast:::1. There is a small acute to subacute infarct identified in the left occipital lobe. 2. Additional punctate foci of acute ischemia are seen in the left parietal and occipital lobes. 3. There is no hemorrhage or mass effect. MRA ::No significant stenosis, occlusion, or aneurysm within the [place]. Carotid Doppler::Findings suggestive of greater than 70% stenosis of the proximal left internal carotid artery. Started on Aspirin and Plavix -will need for 3 months Started on Statin Fasting lipid panel-unremarkable . ECHO-pending EEG -negative Appreciate Vascular surgery input> CTA of the Neck-More than 50% stenosis of the right ICA Appreciate Neurology input HX OF BPH : cont out pt meds FULL CODE DVT PROPHYLAXIS : low risk very active at baseline scd and teds ambulate DISPOSITION ; expected to be discharged home when medically stable Likely discharge tomorrow Vital Signs: Date Time Temp Pulse Resp B/P (MAP) Pulse Ox O2 Delivery O2 Flow Rate FiO2 10/08/16 12:00 Room Air 10/08/16 11:25 36.5 57 20 149/88 (108) 95 Room Air 10/08/16 08:00 Room Air 10/08/16 07:09 36.5 73 18 119/77 (91) 96 Room Air 10/08/16 04:39 36.4 54 20 131/83 (99) 96 Room Air 10/08/16 04:00 Room Air 10/08/16 00:00 Room Air 10/07/16 23:17 36.9 72 20 145/80 (101) 94 Room Air 10/07/16 20:00 Room Air 10/07/16 19:22 36.9 79 18 136/80 (98) 97 10/07/16 15:44 36.3 69 16 161/91 (114) 95 10/07/16 15:29 Room Air Lab Results: Results Past 24 Hours Test 10/08/16 06:53 Range/Units Sodium Level 140 136-145 mmol/L Potassium Level 3.7 3.5-5.1 mmol/L Chloride Level 106 98-107 mmol/L Carbon Dioxide Level 28 21-32 mmol/L Anion Gap 6.0 3-11 mmol/L Blood Urea Nitrogen 18 7-18 mg/dl Creatinine 0.89 0.60-1.40 mg/dl Est Creatinine Clear Calc Drug Dose 102.1 ml/min Estimated GFR () 107.0 Estimated GFR (Non- 92.3 BUN/Creatinine Ratio 20.2 10-20 Random Glucose 119 70-99 mg/dl Calcium Level 8.7 8.5-10.1 mg/dl
--- NOTE | 2016-10-08 14:19 | Progress Note ---
Internal Med Progress Note Date of Service: Oct 08, 2016. Provider Documentation: SUBJECTIVE: The patient was seen and examined Very active physically Admitted with sudden numbness of the right UE Condition improve on the way to ER and resolved thereafter No new symptoms Ambulating well without any symptoms OBJECTIVE: Vital Signs-as noted below Exam: General-No distress Eyes-normal ENT-normal Neck-supple Lungs-Clear to ausucltate bilaterally Heart-Regular,no murmur appreciated Abdomen-Benign,no masses,bowel sound present Extremities-NO edema Neuro-AAOx3 No focal Neuro deficit Lab data as noted below. ASSESSMENT & PLAN: TIA ::TO RULE OUT CVA : -presented with motor weakness of rt hand and arm for approx 45 -50 mins -happened 11 pm day before admission -symptom resolved spontaneously -no residual neurological deficit noted -CT head w/out contrast negative for acute change -MRI of brain with and without contrast::: 1. There is a small acute to subacute infarct identified in the left occipital lobe. 2. Additional punctate foci of acute ischemia are seen in the left parietal and occipital lobes. 3. There is no hemorrhage or mass effect. MRA ::No significant stenosis, occlusion, or aneurysm within the [place]. Carotid Doppler::Findings suggestive of greater than 70% stenosis of the proximal left internal carotid artery. Started on Aspirin and Plavix -will need for 3 months Started on Statin Fasting lipid panel-unremarkable . ECHO-The left ventricle is normal in size. * There is normal left ventricular wall thickness. * The left ventricular wall motion is normal. * Left ventricular systolic function is normal. * Ejection Fraction = 60-65%. * Aortic valve sclerosis mild, without significant aortic valvular stenosis. * Trace aortic regurgitation. * There is trace mitral regurgitation. * There is trace tricuspid regurgitation. * Doppler findings do not suggest pulmonary hypertension. * The interatrial septum is intact with no evidence for an atrial septal defect. * Injection of contrast documented no interatrial shunt. EEG -negative Appreciate Vascular surgery input> CTA of the Neck-;;Focal narrowing (at least 50% stenosis) at the origin of the left internal carotid artery as a consequence of calcified and noncalcified atherosclerotic plaque. Appreciate Neurology input:embolic source is likely from Left carotid Arterial plaque Appreciate Vascular Surgery input-Left CEA scheduled on Monday10/10/2016 as an OP in [facility] Discussed with the Neurologist and the Vascular surgeon. HX OF BPH : cont out pt meds FULL CODE DVT PROPHYLAXIS : low risk very active at baseline scd and teds ambulate DISPOSITION ; Discharge today Will continue Aspirin and Plavix for 3 months as per Neurology Left CEA on Monday the [address] Toledo Appointment with Dr Jones on 10/12/16 at 1:45 PM Vital Signs: Date Time Temp Pulse Resp B/P (MAP) Pulse Ox O2 Delivery O2 Flow Rate FiO2 10/08/16 12:00 Room Air 10/08/16 11:25 36.5 57 20 149/88 (108) 95 Room Air 10/08/16 08:00 Room Air 10/08/16 07:09 36.5 73 18 119/77 (91) 96 Room Air 10/08/16 04:39 36.4 54 20 131/83 (99) 96 Room Air 10/08/16 04:00 Room Air 10/08/16 00:00 Room Air 10/07/16 23:17 36.9 72 20 145/80 (101) 94 Room Air 10/07/16 20:00 Room Air 10/07/16 19:22 36.9 79 18 136/80 (98) 97 10/07/16 15:44 36.3 69 16 161/91 (114) 95 10/07/16 15:29 Room Air Lab Results: Results Past 24 Hours Test 10/08/16 06:53 Range/Units Sodium Level 140 136-145 mmol/L Potassium Level 3.7 3.5-5.1 mmol/L Chloride Level 106 98-107 mmol/L Carbon Dioxide Level 28 21-32 mmol/L Anion Gap 6.0 3-11 mmol/L Blood Urea Nitrogen 18 7-18 mg/dl Creatinine 0.89 0.60-1.40 mg/dl Est Creatinine Clear Calc Drug Dose 102.1 ml/min Estimated GFR () 107.0 Estimated GFR (Non- 92.3 BUN/Creatinine Ratio 20.2 10-20 Random Glucose 119 70-99 mg/dl Calcium Level 8.7 8.5-10.1 mg/dl
[2016-10-08] MEDS ORDERED: ASPEC81 PO (14:24)
[2016-10-08] MEDS ORDERED: LPT40 PO (14:24)
[2016-10-08] MEDS ORDERED: PLV75 PO (14:24)
--- NOTE | 2016-10-08 14:29 | Discharge Instructions ---
Discharge Instructions Date of Service Oct 08, 2016. Admission Reason for Admission: TIA Discharge Discharge Diagnosis / Problem: TIA,Left Carotid disease Discharge Goals Goal(s): Prevent Disease Progression Activity Recommendations Activity Limitations: resume your previous activity Shower/Bathe: no limitations (Take it easy for the next week or so.) . Instructions / Follow-Up Instructions / Follow-Up DR Jones on 10/12/16 at 1:[address] Toledo on 10/10/16 at 7:00AM at [facility] for OP surgery.No food or Drink or Medications after midnight on Monday. Current Hospital Diet Patient's current hospital diet: AHA Diet (Heart Healthy) Discharge Diet Recommended Diet: AHA Diet (Heart Healthy) Pending Studies Studies pending at discharge: no Laboratory Results Hemoglobin A1c Test 10/07/16 06:38 Range/Units Estimated Average Glucose 126 mg/dl Hemoglobin A1c 6.0 H 4.5-5.6 % Lipid Panel Test 10/07/16 06:38 Range/Units Triglycerides Level 75 0-150 mg/dl Cholesterol Level 201 H 0-200 mg/dl HDL Cholesterol 58 mg/dl Cholesterol/HDL Ratio 3.5 LDL Cholesterol, Calculated 128 mg/dl Medical Emergencies . Who to Call and When: Medical Emergencies: If at any time you feel your situation is an emergency, please call 911 immediately. . Non-Emergent Contact Non-Emergency issues call your: Primary Care Provider . Past History Medical & Surgical History: (1) TIA (transient ischemic attack) (2) Prostatic hypertrophy . "Provider Documentation" section prepared by Lakia Sue. . VTE Core Measure Inpt VTE Proph given/why not?: Bridget Pinzon, PADMINI's
[2016-10-08 15:13] VITALS: BP 144/78; PULSE 70; TEMP 36.9; O2SAT 97
--- NOTE | 2016-10-08 15:14 | Pharmacy Progress Note ---
Pharmacist Stroke Counseling Date of Service Oct 08, 2016. Scope Pharmacy has been consulted to provide medication discharge counseling for this patient admitted with ischemic stroke/ transient ischemic attack as per the Pharmacist Discharge Counseling for Stroke Patients Protocol. Medications on Discharge New Medications: Aspirin (Aspirin EC Low Dose) 81 Mg Ectab 81 MG PO QAM for 30 Days, #30 cContinue for 3 months with Plavix and then continue alone,until advised otherwise Atorvastatin (Atorvastatin Calcium) 40 Mg Tab 80 MG PO QAM for 30 Days, #60 TAB Clopidogrel Bisulfate (Clopidogrel) 75 Mg Tab 75 MG PO QAM for 30 Days, #30 TAB Continue for 3 months as per Neurology until advised otherwise Continued Medications: Acetaminophen (Tylenol Arthritis Ext Rel) 650 Mg Cplt 650 MG PO QAM PRN for Pain Dutasteride (Avodart) 0.5 Mg Cap 0.5 MG PO QPM Tamsulosin Hcl (Flomax) 0.4 Mg Cap 0.4 MG PO QPM Discontinued Medications: Naproxen (Aleve) 220 Mg Tab 220 MG PO QAM PRN for Pain Mr Crowell is a formerly healthy man, except arthritis of the hip, for which he rides a bicycle 3 miles to work daily. He took baby ASA in the past but often forgot. He is familiar with statins since his takes it. He normally takes his medications after breakfast (except Flomax/Avodart at bedtime.) He took the 7-day pillbox, and will try to routinely take his meds. He is scheduled to be readmitted on Tuesday 10/10 for carotid endarterectomy. Action The above medications, specifically ones for stroke treatment/prophylaxis, have been reviewed in detail with the patient prior to discharge. This includes indication, common adverse reactions, drug interactions, and medication administration. Medication counseling has been employed using the teach-back method to ensure understanding. Outcome The patient has demonstrated understanding of the medications. Please note, they are aware that the pharmacist will call them within 72 hours post-discharge to confirm that the appropriate medications are being taken and answer any further medication related questions the patient might have at that time. Contact information Individual to be contacted: Shakeel Crowell Relationship to patient (if applicable): self Phone number: cell [phone] Best time to call: after [phone] when he gets off work. Additional comments: Surgery scheduled 8/[address] Toledo Thank you for allowing pharmacy to be involved in the care of this patient. Please call [phone] or [phone] with any additional questions
[2016-10-08 15:48] VITALS: BP 144/78; PULSE 70; TEMP 36.9; O2SAT 97
--- NOTE | 2016-10-08 15:50 | PROGRESS NOTE ---
DATE: 10/08/2016 DATE: 10/08/2016 Shakeel looks well today. He has had no further TIAs. His exam neurologically remains normal. He is awake, alert, oriented in 3 spheres. He has no cranial neuropathies, visual field cuts, drift or pronation sign, tremor, tics, choreiform activity, asymmetrical reflexes, loss of strength or loss of sensation. He was seen by Dr. Toledo. I refer the reader to Dr. Toledo's note. A CTA was done as I suspected it would. The interpretation shows that there is irregular plaque but the degree of stenosis is estimated to be about 50%. I think Dr. Toledo and I are on the same page on this one. This man has an irregular plaque. He has already had a shower of emboli. He is at risk for more and I think surgery in this setting is indicated no matter what the degree of stenosis is as the plaque is symptomatic. To this end he is going to be discharged and readmitted for outpatient surgery on Monday and have the endarterectomy performed then. Regarding the antiplatelet treatment, I am not sure there are clear charted diaz here. Certainly for stroke due to artery to artery emboli dual antiplatelet therapy is recommended for about 3 months acting on the assumption that surgery or other corrective measures will not be performed. In this case, he is going to have the endarterectomy and I probably would recommend only a single antiplatelet agent for his lifetime after that and of the 2 I would probably pick aspirin simply based on its cost. Dr. Toledo may have another opinion and I will obviously defer to him regarding postoperative management and followup. The patient is going to be seen by his primary care physician, Dr. Jones in followup and I would be happy to look at him in neurology as needed. LAKEISHA
[2016-10-08] MEDS ORDERED: CLOPIDOGREL BISULFATE 75 MG TAB PO SCH (16:00)
[2016-10-08] MEDS ORDERED: ASPIRIN 81 MG ECTAB PO SCH (16:00)
[2016-10-08] MEDS ORDERED: ATORVASTATIN 40 MG TAB PO SCH (16:00)
--- NOTE | 2016-10-09 11:48 | Discharge Summary ---
Discharge Summary Date of Service Oct 09, 2016. Discharge Summary Admission Date: Oct 07, 2016 at 02:12 Discharge Date: Oct 08, 2016 Discharge Disposition: Home Principal Diagnosis: TIA,Left Carotid disease Secondary Diagnoses/Problems: Please see H&P and hospital progress note Consultations: Neurology and Vascular surgery Medication Reconciliation New Medications: Aspirin (Aspirin EC Low Dose) 81 Mg Ectab 81 MG PO QAM for 30 Days, #30 cContinue for 3 months with Plavix and then continue alone,until advised otherwise Atorvastatin (Atorvastatin Calcium) 40 Mg Tab 80 MG PO QAM for 30 Days, #60 TAB Clopidogrel Bisulfate (Clopidogrel) 75 Mg Tab 75 MG PO QAM for 30 Days, #30 TAB Continue for 3 months as per Neurology until advised otherwise Continued Medications: Acetaminophen (Tylenol Arthritis Ext Rel) 650 Mg Cplt 650 MG PO QAM PRN for Pain Dutasteride (Avodart) 0.5 Mg Cap 0.5 MG PO QPM Tamsulosin Hcl (Flomax) 0.4 Mg Cap 0.4 MG PO QPM Discontinued Medications: Naproxen (Aleve) 220 Mg Tab 220 MG PO QAM PRN for Pain Admission Information HPI (per Admitting provider): this is a 61 yo Healthy male presented to ER with transient episode of right arm numbness , unable to move the limb As per patient at baseline he is very active , rides bicycle 3 miles to work at [employer] no prior hx of Stoke or CAD no family hx of CVA or CAD last night he was watching TV from 8 pm to 11 pm noticed his right hand and arm became limp , he can not lift his right hand or move the fingers did not had any visual symptoms , no facial drop , no confusion ,no Dysarthria , no weakness on lower ext he could lift his right arm above shoulder , but had no movement at elbow , wrist or fingers he walked to living room to his -his also noted his right arm hanging with wrist deviated inside , pt tried to move his fingers but unable to do so , had no sensation Decided to come to ED with concern for possible stroke like symptom Pt able to walk and get into the car as his was driving -he gradually started to regain sensation in rt hand and arm , able to move the fingers after arrival to ED almost 75-80% symptoms were resolved , except for slight numbness CT Head was unremarkable EKG was NSR during my interview , pt was completely symptom free Motor strength on rt hand and arm was 5/5 with intact fine motor skills , normal sensation no other weakness or deficit noted speech was clear with intact mentation Family History FH: heart attack Social History Smoking Status: Never Smoker Marital Status: Occupational Status: employed Multi-Drug Resistant Organisms History of MDRO: No Allergies Coded Allergies: No Known Allergies (Unverified , 07/31/13) Home Medications Scheduled Dutasteride (Avodart), 0.5 MG PO QPM Tamsulosin Hcl (Flomax), 0.4 MG PO QPM Scheduled PRN Acetaminophen (Tylenol Arthritis Ext Rel), 650 MG PO QAM PRN for Pain Naproxen (Aleve), 220 MG PO QAM PRN for Pain Review of Systems Constitutional: + weakness, + problem reported (rt arm and hand weakness - resolved ) Respiratory: No cough, No sputum, No wheezing, No shortness of breath, No dyspnea on exertion, No dyspnea at rest, No hemoptysis, No problem reported Cardiovascular: No chest pain, No orthopnea, No PND, No edema, No claudication , No palpitations, No problem reported Abdomen: No pain, No nausea, No vomiting, No diarrhea, No constipation, No GI bleeding, No problem reported Musculoskeletal: + problem reported (rt hand /numbness for approx 45 -50 mins - resolved ) Neurologic: + weakness (rt upper ext transient weakness ), + numbness/tingling (rt upper ext ) Physical Ex - H&P Physical Exam Vital Signs Date Time Temp Pulse Resp B/P (MAP) Pulse Ox O2 Delivery O2 Flow Rate FiO2 10/07/16 01:14 61 16 133/86 96 Room Air 10/07/16 00:32 Room Air 10/07/16 00:26 61 10/07/16 00:10 36.5 66 17 151/89 97 Room Air General Appearance: WD/WN, no apparent distress Head: normocephalic, atraumatic Eyes: normal inspection, sclerae normal Neck: supple, no JVD, no carotid bruits Respiratory/Chest: chest non-tender, lungs clear, normal breath sounds, no respiratory distress Cardiovascular: regular rate, rhythm Abdomen/GI: normal bowel sounds, non tender, soft Extremities/Musculoskelatal: normal inspection, no calf tenderness, normal capillary refill, no pedal edema 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, no motor/sensory deficits, alert, normal mood/affect, normal reflexes, oriented x 3 Diagnostics - H&P Diagnostics Laboratory Results Results Past 24 Hours Test 10/07/16 00:25 10/07/16 01:30 Range/Units White Blood Count 7.01 4.8-10.8 K/uL Red Blood Count 4.99 4.7-6.1 M/uL Hemoglobin 14.2 14.0-18.0 g/dL Hematocrit 43.2 42-52 % Mean Corpuscular Volume 86.6 80-100 fL Mean Corpuscular Hemoglobin 28.5 25-34 pg Mean Corpuscular Hemoglobin Concent 32.9 32-36 g/dl Platelet Count 226 130-400 K/uL Mean Platelet Volume 9.6 7.4-10.4 fL Neutrophils (%) (Auto) 47.4 % Lymphocytes (%) (Auto) 40.8 % Monocytes (%) (Auto) 8.1 % Eosinophils (%) (Auto) 3.3 % Basophils (%) (Auto) 0.3 % Neutrophils # (Auto) 3.32 1.4-6.5 K/uL Lymphocytes # (Auto) 2.86 1.2-3.4 K/uL Monocytes # (Auto) 0.57 0.11-0.59 K/uL Eosinophils # (Auto) 0.23 0-0.5 K/uL Basophils # (Auto) 0.02 0-0.2 K/uL RDW Standard Deviation 43.0 36.4-46.3 fL RDW Coefficient of Variation 13.6 11.5-14.5 % Immature Granulocyte % (Auto) 0.1 % Immature Granulocyte # (Auto) 0.01 0.00-0.02 K/uL Prothrombin Time 10.4 9.0-12.0 SECONDS Prothromb Time International Ratio 1.0 0.9-1.1 Activated Partial Thromboplast Time 28.2 21.0-31.0 SECONDS Partial Thromboplastin Ratio 1.1 Sodium Level 142 136-145 mmol/L Potassium Level 4.0 3.5-5.1 mmol/L Chloride Level 110 98-107 mmol/L Carbon Dioxide Level 26 21-32 mmol/L Anion Gap 6.0 3-11 mmol/L Blood Urea Nitrogen 32 7-18 mg/dl Creatinine 0.88 0.60-1.40 mg/dl Est Creatinine Clear Calc Drug Dose 103.5 ml/min Estimated GFR () 107.5 Estimated GFR (Non- 92.7 BUN/Creatinine Ratio 35.9 10-20 Random Glucose 97 70-99 mg/dl Calcium Level 8.8 8.5-10.1 mg/dl Total Creatine Kinase 201 39-308 U/L Creatine Kinase MB 2.5 0.5-3.6 ng/ml Creatine Kinase MB Ratio 1.2 0-3.0 Troponin I < 0.015 0-0.045 ng/ml Urine Color YELLOW Urine Appearance CLEAR CLEAR Urine pH 5.5 4.5-7.5 Urine Specific [place] 1.027 1.000-1.030 Urine Protein NEG NEG Urine Glucose (UA) NEG NEG Urine Ketones NEG NEG Urine Occult Blood NEG NEG Urine Nitrite NEG NEG Urine Bilirubin NEG NEG Urine Urobilinogen NEG NEG Urine Leukocyte Esterase NEG NEG Diagnostic Radiology CT HEAD WITH OUT CONTRAST : no acute change EKG Sinus bradycardia Incomplete right bundle branch block Borderline ECG When compared with ECG of 25-JAN-2006 17:14, No significant change was found Impression - H&P Impression Assessment and Plan TIA RULE OUT CVA : presented with motor weakness of rt hand and arm for approx 45 -50 mins happened 11 pm yesterday symptom resolved spontaneously no residual neurological deficit noted CT head w/out contrast negative for acute change MRI of brain with and without contrast /MRA of brain ordered Carotid Doppler for evaluation of carotid stenosis /plaque pt denies of any complain of palpitation or SOB will be monitored in tele for evaluation of arrhythmia pt will be started on Aspirin may need addition of Plavix if MRI finding suggestive of stroke ordered for fasting lipid panel .Hb A1 c in AM lab for risk stratification ECHO for evaluation for cardiac thrombus Neurology eval requested HX OF BPH : cont out pt meds FULL CODE DVT PROPHYLAXIS : low risk very active at baseline scd and teds ambulate DISPOSITION ; expected to be discharged home when medically stable Level of Care Telemetry Resuscitation Status FULL RESUSCITATION VTE Prophylaxis Given or contraindicated: T.E.D. 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 There is a small acute to subacute infarct identified in the left occipital lobe. 2. Additional punctate foci of acute ischemia are seen in the left parietal and occipital lobes. 3. There is no hemorrhage or mass effect. MRA ::No significant stenosis, occlusion, or aneurysm within the [place]. Carotid Doppler::Findings suggestive of greater than 70% stenosis of the proximal left internal carotid artery. Started on Aspirin and Plavix -will need for 3 months Started on Statin Fasting lipid panel-unremarkable . ECHO-The left ventricle is normal in size. * There is normal left ventricular wall thickness. * The left ventricular wall motion is normal. * Left ventricular systolic function is normal. * Ejection Fraction = 60-65%. * Aortic valve sclerosis mild, without significant aortic valvular stenosis. * Trace aortic regurgitation. * There is trace mitral regurgitation. * There is trace tricuspid regurgitation. * Doppler findings do not suggest pulmonary hypertension. * The interatrial septum is intact with no evidence for an atrial septal defect. * Injection of contrast documented no interatrial shunt. EEG -negative Appreciate Vascular surgery input> CTA of the Neck-;;Focal narrowing (at least 50% stenosis) at the origin of the left internal carotid artery as a consequence of calcified and noncalcified atherosclerotic plaque. Appreciate Neurology input:embolic source is likely from Left carotid Arterial plaque Appreciate Vascular Surgery input-Left CEA scheduled on Monday10/10/2016 as an OP in [facility] Discussed with the Neurologist and the Vascular surgeon. HX OF BPH : cont out pt meds FULL CODE DVT PROPHYLAXIS : low risk very active at baseline scd and teds ambulate DISPOSITION ; Discharge today Will continue Aspirin and Plavix for 3 months as per Neurology Left CEA on Monday the [address] Toledo Appointment with Dr Jones on 10/12/16 at 1:45 PM Total time spent on discharge = 35 minutes This includes examination of the patient, discharge planning, medication reconciliation, and communication with other providers. Discharge Instructions Date of Service Oct 08, 2016. Admission Reason for Admission: TIA Discharge Discharge Diagnosis / Problem: TIA,Left Carotid disease Discharge Goals Goal(s): Prevent Disease Progression Activity Recommendations Activity Limitations: resume your previous activity Shower/Bathe: no limitations (Take it easy for the next week or so.) . Instructions / Follow-Up Instructions / Follow-Up DR Jones on 10/12/16 at 1:[address] Toledo on 10/10/16 at 7:00AM at [facility] for OP surgery.No food or Drink or Medications after midnight on Monday. Current Hospital Diet Patient's current hospital diet: AHA Diet (Heart Healthy) Discharge Diet Recommended Diet: AHA Diet (Heart Healthy) Pending Studies Studies pending at discharge: no Laboratory Results Hemoglobin A1c Test 10/07/16 06:38 Range/Units Estimated Average Glucose 126 mg/dl Hemoglobin A1c 6.0 H 4.5-5.6 % Lipid Panel Test 10/07/16 06:38 Range/Units Triglycerides Level 75 0-150 mg/dl Cholesterol Level 201 H 0-200 mg/dl HDL Cholesterol 58 mg/dl Cholesterol/HDL Ratio 3.5 LDL Cholesterol, Calculated 128 mg/dl Medical Emergencies . Who to Call and When: Medical Emergencies: If at any time you feel your situation is an emergency, please call 911 immediately. . Non-Emergent Contact Non-Emergency issues call your: Primary Care Provider . Past History Medical & Surgical History: (1) TIA (transient ischemic attack) (2) Prostatic hypertrophy . "Provider Documentation" section prepared by Lakia Sue. . VTE Core Measure Inpt VTE Proph given/why not?: PADMINI [place]'s <Electronically signed by Lakia Sue M.D.> Signed: 10/08/16 2810 Additional Copies To Dharmesh Jones III, M.D.
[2016-10-10] MEDS ORDERED: CEFAZOLIN IV 3,000 MG in DEXTROSE 5% 50ML 50 ML IV SCH (06:00)
[2016-10-11] MEDS ORDERED: OXYC-57 PO (07:41)
--- NOTE | 2016-10-13 17:36 | Pharmacy Progress Note ---
Pharmacist Post D/C Phone Note Date of phone call: Oct 13, 2016. Individual with whom pharmacist spoke to: patient The following questions were reviewed during the phone call with responses listed below each: Can you tell me the medications that you are currently taking as well as when and how you take each medication? - aspirin 81 mg PO daily plus Lipitor 80 mg daily (in addition to Avodart and Flomax) When have you missed any doses of your medications? - no What side effects are you having from your medications? - none What questions do you have about your medications? - why should the patient stop Aleve when starting aspirin --> I informed patient that Aleve will increase his risk of bruising and bleeding pLUS can cause gastric ulcers What problems are you having obtaining your medications? - none When is your next appointment with your primary care doctor? - next Monday Additional comments: - patient had procedure with Dr Toledo and no longer is taking Plavix - this appears consistent with neurology notes As per the Pharmacist Discharge Counseling for Stroke Patients Protocol, this phone call has been completed within 72 hours of discharge. Thank you for allowing us to be involved in the care of this patient.
--- NOTE | 2016-11-04 06:51 | EDITING REQUIRED CODING QUERY ---
CODING CLARIFICATION Due to conflicting information within the record, please clarify below the presence of the TIA: ( + ) TIA was present during this admission ( ) TIA was not present during this admission ( ) Other, please clarify: Thank you for your assistance, Liana Strickland - Stores Despatch Hand
== END 2016-10-08 16:30 | disposition home or self-care (01) ==
LOC: C.EDB 00:06 → C.MED 02:12 → CANRESERV 02:24 → ENRESERV 02:24
PROVIDERS: ADMIT Hospitalist; ATTEND Internal Medicine
DX: G45.9 Transient cerebral ischemic attack, unspecified (principal); R03.0 Elevated blood-pressure reading, without diagnosis of hypertension; N40.0 Benign prostatic hyperplasia without lower urinary tract symptoms; Z82.49 Family history of ischemic heart disease and other diseases of the circulatory system

== ENCOUNTER 2016-10-10 07:10 | Inpatient (IN) | payer BC ==
[2016-10-10] VITALS (9 sets, daily range): BP systolic 126–166; BP diastolic 66–105; PULSE 57–75; TEMP 36.3–36.7; O2SAT 91–100; Ht 180.3 cm; Wt 92.0 kg
[~2016-10-10] VITALS: Ht 180.3 cm; Wt 92.0 kg
[~2016-10-10 07:10] MED LIST: ACET1TAB84 PO; ASPEC81 PO; DUTA0.5C PO; LPT40 PO; PLV75 PO; TAMS0.4C38 PO
--- NOTE | 2016-10-10 09:01 | History & Physical Bridge Note ---
H&P Re-Evaluation Bridge Note: I have examined the patient, reviewed the History & Physical and in the interval since the performance of the History & Physical I have noted the following changes of clinical significance: No changes noted
--- NOTE | 2016-10-10 09:01 | History and Physical ---
History & Physical Date of Service Oct 10, 2016. History & Physical Chief Complaint Transient right arm weakness History of Present Illness The patient is a 61 year old male who developed right arm weakness prior to admission. It came on suddenly and resolved in 30 - 40 minutes. This was the first episode. He did not have any involvement of his right leg, face, or speech. He is a healthy active person. Only medication is for his prostate. Allergies Coded Allergies: No Known Allergies (Unverified , 07/31/13) Home Medications Scheduled Dutasteride (Avodart), 0.5 MG PO QPM Tamsulosin Hcl (Flomax), 0.4 MG PO QPM Scheduled PRN Acetaminophen (Tylenol Arthritis Ext Rel), 650 MG PO QAM PRN for Pain Naproxen (Aleve), 220 MG PO QAM PRN for Pain Problem List Medical Problems: (1) Prostatic hypertrophy (2) TIA (transient ischemic attack) Surgical / Medical History Hx Cardiac Surgery: No Hx Abdominal Surgery: Yes (hernia repair) Hx Cancer Surgery: No Hx Thoracic Surgery: No Hx Orthopedic: No Hx Urinary Tract Surgery: No HX Other Surgery: No Past Medical/Surgical History: CVA/TIA, Male Genitourinary Prob. Family History FH: heart attack Social History Smoking Status: Never Smoker Hx Tobacco Use In Past Year?: No Hx Alcohol Use - Type & Amnt: Yes (occasional drink at home) Hx Substance Use -Type & Amnt: No Review of Systems Constitutional: No chills, No diaphoresis, No fever, No malaise, No weakness, No weight gain, No weight loss, No sweats, No fatigue, No problem reported Eyes: No discharge, No blurred vision, No double vision, No eye pain, No tearing, No itching, No photophobia, No redness, No visual changes, No dryness, No irritation, No problem reported ENMT: No dental pain, No loss of hearing, No epistaxis, No ear discharge, No ear pain, No gum swelling, No mouth pain, No mouth swelling, No nasal congestion , No nasal pain, No rhinorrhea, No stridor, No tinnitus, No sore throat, No throat swelling, No problem reported Respiratory: No cough, No cyanosis, No POTTS, No hemoptysis, No orthopnea, No PND , No short of breath, No sputum production, No stridor, No wheezing, No dyspnea , No problem reported Cardiovascular: No chest pain, No chest tightness, No chest pressure, No palpitations, No syncope, No diaphoresis, No edema, No intermittent claudication , No orthopnea, No cyanosis, No mumur, No lightheadedness, No paroxysmal nocturnal dyspnea, No problem reported Gastrointestinal: No abdominal pain, No constipation, No diarrhea, No nausea, No vomiting, No anorexia, No appetite changes, No belching, No flatulence, No food intolerance, No hematemesis, No hemorrhoids, No hematochezia, No stool changes, No heartburn, No indigestion, No dysphagia, No rectal bleeding, No problem reported Genitourinary - Male: + difficulty urinating, No impotence, No penile discharge , No penile itching, No rash, No testicular pain, No testicular swelling, No hematuria, No problem reported Musculoskeletal: No back pain, No gout, No joint pain, No joint swelling, No muscle pain, No muscle stiffness, No muscle weakness, No neck pain, No problem reported Neurologic: No dizziness, No weakness, No headache, No lethargy, No numbness, No paresthesia, No pre-existing deficit, No seizures, No tics, No tingling, No tremors, No vertigo, No memory loss, No LOC, No problem reported Physical Exam Constitutional: General Apperance: heathly-appearing, well-nourished, well-developed Level of Distress: NAD Psychiatric: Mental Status: active & alert, normal mood, normal affect Orientation: oriented except where noted, to time, to place, to person Memory: recent memory normal, remote memory normal Neck: supple Lungs: Auscultation: breath sounds normal Cardiovascular: Heart Auscultation: RRR Peripheral Pulses: Pulses: full and equal Abdomen: Inspection & Palpation: soft Musculoskeletal: normal Extremities: Upper Right: no cyanosis, no edema, no varicosities, no palpable cord, no clubbing, no ulcers, no mottling Upper Left: no cyanosis, no edema, no palpable cord, no clubbing, no ulcers , no mottling Lower Right: no cyanosis, no edema, no varicosities, no palpable cord, no clubbing, no ulcers, no mottling Lower Left: no cyanosis, no edema, no palpable cord, no clubbing, no ulcers , no mottling, varicosities Neurologic: Cranial Nerves: grossly intact Sensation: grossly intact Assessment and Plan Imp: Left carotid stenosis TIA Plan: Patient for left CEA. I have discussed the risks options and benefits of the procedure with the patient. The patient understands the risks options and benefits and agrees to the procedure.
[2016-10-10] MEDS ORDERED: SODIUM CHLORIDE 0.9% 1000ML 1,000 ML IV ONE (09:35)
[2016-10-10] MEDS ORDERED: CEFAZOLIN SOD 1000MG/55 ML D5W IV ONE (09:49)
[2016-10-10] MEDS ORDERED: CISATRACURIUM BESYLATE IV SOLN 2 MG/ML 10 ML VIAL ONE ×2 (10:31→11:20)
[2016-10-10] MEDS ORDERED: FENTANYL CITRATE INJ 50 MCG/1 ML 2 ML VIAL ONE ×2 (11:20→15:30)
[2016-10-10] MEDS ORDERED: MIDAZOLAM HCL 1 MG/ML 2ML VIAL ONE (11:20)
[2016-10-10] MEDS ORDERED: NEOSTIGMINE METHYLSULFATE 5 MG/5 ML SYR ONE (11:20)
[2016-10-10] MEDS ORDERED: LARYING-O-JET KIT (LTA) ONE ×2 (11:20)
[2016-10-10] MEDS ORDERED: GLYCOPYRROLATE INJ 0.2 MG/ML VIAL ONE ×2 (11:20→15:39)
[2016-10-10] MEDS ORDERED: LABETALOL HCL IV 5 MG/ML 20ML IV ONE (11:20)
[2016-10-10] MEDS ORDERED: DEXAMETHASONE SOD INJ 4 MG/ML VIAL ONE (11:20)
[2016-10-10] MEDS ORDERED: LIDOCAINE HCL 2% 2 ML VIAL (20MG/ML) ONE (11:20)
[2016-10-10] MEDS ORDERED: PHENYLEPHRINE HCL INJ 10 MG/ML VIAL ONE (11:20)
[2016-10-10] MEDS ORDERED: PROPOFOL IV EMULSION 10 MG/ML 20 ML VIAL IV ONE (11:20)
[2016-10-10] MEDS ORDERED: NITROGLYCERIN 5 MG/ML 10 ML VIAL ONE (11:20)
[2016-10-10] MEDS ORDERED: EpHEDrine SULFATE 50MG/5ML SYR ONE (11:20)
[2016-10-10] MEDS ORDERED: ONDANSETRON INJ 2 MG/ML 2 ML VIAL ONE ×2 (11:20→15:47)
[2016-10-10] MEDS ORDERED: THROMBIN FOR SOLN 20000 UNIT KIT ONE (12:12)
[2016-10-10] MEDS ORDERED: BUPIVACAINE/EPINEPHRINE 0.5% MPF 1:200,000 10 ML VIAL ONE (12:12)
[2016-10-10] MEDS ORDERED: GELATIN SPONGE 12-7MM ONE (12:12)
[2016-10-10] MEDS ORDERED: LIDOCAINE HCL 1% 20 ML VIAL ONE (12:13)
[2016-10-10] MEDS ORDERED: HEPARIN SOD (PORCINE) 1000 UNIT/ML 10 ML VIAL ONE ×2 (12:13→14:40)
[2016-10-10] MEDS ORDERED: CEFAZOLIN SOD 1 GM VIAL ONE ×2 (12:13→13:57)
[2016-10-10] MEDS ORDERED: PROTAMINE SULFATE 10 MG/ML 5 ML VIAL IV ONE (14:40)
[2016-10-10] MEDS ORDERED: LABETALOL HCL IV 5 MG/ML 20ML IV PRN (14:45)
[2016-10-10] MEDS ORDERED: EpHEDrine SULFATE INJ 50 MG/ML AMP IV PRN (14:45)
[2016-10-10] MEDS ORDERED: ONDANSETRON INJ 2 MG/ML 2 ML VIAL IV PRN ×2 (14:45→15:45)
[2016-10-10] MEDS ORDERED: PROMETHAZINE HCL INJ 12.5 MG in SODIUM CHLORIDE 0.9% 50ML 50 ML IV PRN (14:45)
[2016-10-10] MEDS ORDERED: FLUMAZENIL 0.1 MG/1 ML 10 ML VIAL IV PRN (14:45)
[2016-10-10] MEDS ORDERED: HYDROmorphone INJ 1 MG/ML SYR IV PRN (14:45)
[2016-10-10] MEDS ORDERED: ATROPINE SULFATE 0.1 MG/ML 5ML SYR IV PRN (14:45)
[2016-10-10] MEDS ORDERED: NALOXONE HCL 0.4 MG/1 ML VIAL/CARP IV PRN (14:45)
[2016-10-10] MEDS ORDERED: EpHEDrine SULFATE INJ 50 MG/ML AMP ONE (15:39)
[2016-10-10] MEDS ORDERED: NITROGLYCERIN/D5W 100 MCG/ML 250 ML IV PRN (15:44)
[2016-10-10] MEDS ORDERED: PHENYLEPHRINE HCL INJ 20 MG in DEXTROSE 5% 500ML 500 ML IV PRN (15:44)
[2016-10-10] MEDS ORDERED: SODIUM NITROPRUSSIDE SOLN INJ 50 MG in DEXTROSE 5% 500ML 500 ML IV PRN (15:44)
--- NOTE | 2016-10-10 15:44 | [facility] Post Operative Brief Note ---
Immediate Operative Summary Operative Date Oct 10, 2016. Pre-Operative Diagnosis Left carotid stenosis TIA Post-Operative Diagnosis Same Procedure(s) Performed Left Carotid Endarterectomy with patch Surgeon Dr Toledo Shoe Treer Surgeon(s) Dr Brennon Sepulveda MD Estimated Blood Loss 80ML Findings ulcerative hemorrhagic plaque, acute Specimens A. left carotid plaque Anesthesia Gen Disposition Recovery Room / PACU
[2016-10-10] MEDS ORDERED: MoRPHine SULFATE 4 MG/ML 1 ML CARP\\VIAL IV PRN (15:45)
[2016-10-10] MEDS ORDERED: OXYCODONE/ACETAMINOPHEN 5-325 TAB PO PRN (15:45)
[2016-10-10] MEDS ORDERED: ACETAMINOPHEN 325 MG TAB PO PRN (15:45)
--- NOTE | 2016-10-10 16:15 | [facility] Operative Report ---
Operative Report Operative Date Oct 10, 2016. Pre-Operative Diagnosis Left carotid stenosis TIA Post-Operative Diagnosis Same Procedure(s) Performed Left Carotid Endarterectomy with patch Surgeon Dr Toledo After [employer] Caregiver Surgeon(s) Dr Brennon Sepulveda MD Estimated Blood Loss 80ML Findings Patient had a ruptured plaque in the distal common/proximal internal carotid artery. Specimens A. left carotid plaque Anesthesia Gen Disposition Recovery Room / PACU Indications 61 year old male who developed right arm weakness prior to admission. It came on suddenly and resolved in 30 - 40 minutes. This was the first episode. He did not have any involvement of his right leg, face, or speech. (Symptomatic carotid stenosis on the left side) Description of Procedure The patient was brought to the operating room, where an arterial line was placed and general anesthesia was secured. The left neck was prepped and sterilely draped. An oblique incision was made along the anterior border of the right sternocleidomastoid muscle. The platysma was divided and dissection was carried down to the carotid sheath. The facial vein was doubly ligated and divided exposing the carotid bifurcation. The vagus nerve and XII nerve were identified and kept free from dissection and retraction. The internal, external , and common carotid arteries were dissected free proximally and distally. 7000 U of Heparin was given intravenously. The external carotid vessels was encircled with vessel loops. Once the heparin was allowed to circulate for approximately 5 minutes, clamps were placed starting with the internal carotid and common carotid and external carotid. An anterior arteriotomy was made on the common carotid artery using an 11 blade. Izquierdo scissors was used to extend the arteriotomy through the plaque on to the distal soft internal carotid artery. The plaque was calcified and ulcerated. A shunt was then inserted into the into the internal carotid artery and revealed good backbleeding. The proximal end of the shunt was then inserted into the common carotid artery and secured in place. The Doppler attached to the shunt was turned on and revealed good flow through the shunt. A [place] elevator was used to create an endarterectomy plane. The proximal endpoint was created using Izquierdo scissors. The plaque was freed out of the external carotid artery.With downward retraction on the plaque, a smooth distal endpoint was created. All debris was meticulously debrided from the inside of the lumen and confirmed with instillation of heparinized saline. 1 tacking sutures was placed at common carotid artery to tach down the intima. Once endarterectomy was completed, an Aquacel patch was then cut to the appropriate size and sewn into internal carotid artery using a PTFE 6-0 sutures starting at the internal carotid artery corner of the arteriotomy. Before the patch was completed, the shunt was pulled and all the arteries were backbleed extruding any air and debris. The patch was then completed. The external carotid clamp was removed first, followed by the common carotid artery clamp, and finally the internal carotid artery clamp, restoring blood flow to the brain. Patient did have some oozing a 6-0 Prolene was used to achieve hemostasis as well as thrombin soaked gel foam and Surgicel. Meticulous hemostasis was secured. The wound was then closed in multiple layers using 3-0 Vicryl suture then a 4-0 Vicryl subcutaneous layer closing the skin. Dermabond was applied over the incision. The patient tolerated the procedure well and was extubated on table. The patient was moving all four extremities to command prior to and upon transfer to the recovery room. Dr. Toledo was present and scrubbed for the entirety of the case. I, Dr. Toledo was present and scrubbed for the entire procedure. I attest to the content of the Intraoperative Record and any orders documented therein. Any exceptions are noted below.
--- NOTE | 2016-10-10 16:57 | Anesthesiology Progress Note ---
Anesthesia Post Op Note Date & Time Oct 10, 2016 at 16:57 Vital Signs Pain Intensity: 0 Vital Signs Past 12 Hours Date Time Temp Pulse Resp B/P (MAP) Pulse Ox O2 Delivery O2 Flow Rate FiO2 10/10/16 16:50 55 18 128/72 99 Nasal Cannula 2 10/10/16 16:40 53 16 131/74 99 Nasal Cannula 2 10/10/16 16:30 54 14 123/80 100 Oxymask 10 10/10/16 16:20 61 12 122/76 100 Oxymask 10 10/10/16 16:12 36.0 55 16 135/84 100 Oxymask 10 10/10/16 09:30 36.3 65 20 147/98 100 Room Air Notes Mental Status: alert / awake / arousable, participated in evaluation Pt Amnestic to Procedure: Yes Nausea / Vomiting: adequately controlled Pain: adequately controlled Airway Patency, RR, SpO2: stable & adequate BP & HR: stable & adequate Hydration State: stable & adequate Anesthetic Complications: no major complications apparent
[2016-10-10] MEDS: D5W AND 1/2NSS 1,000 ML IV SCH ×2 (17:30→23:44)
--- NOTE | 2016-10-10 18:05 | Critical Care Consultation ---
Critical Care Consultation Date of Consultation: Oct 10, 2016. Attending Physician: Channing Toledo M.D. Reason for Consultation: Post op for left carotid endarterectomy History of Present Illness 61 year old male who developed right hand and arm weakness on 10/06/2016 at 11pm. He was unable to lift his right hand or move his fingers so he came to the ED. His symptoms starting resolving on his way to the ED and by the time he was seen by the hospitalist his symptoms had fully resolved.. He was admitted to the hospital for a stroke workup. An EKG showed NSR. He had a CT of his head without contrast which was negative. MRI of brain showed an acute infarct in the occipital lobe and punctuate foci in the left parietal and occipital lobe. He had a carotid doppler which showed 70% stenosis of the left proximal internal carotid artery. The patient was discharged on 10/08/17 on aspirin and plavix for 3 months and was scheduled for a left CEA on 10/10/2016 as an outpatient. He had the procedure this morning with Dr. Toledo without any complications and was asked for a consult from the freight shipping agent Past Medical/Surgical History Benign Prostatic Hyperplasia Family History FH: heart attack Social History Smoking Status: Never Smoker Alcohol Use: occasionally Drug Use: none Marital Status: Housing Status: lives with family Occupation Status: employed Allergies Coded Allergies: No Known Allergies (Verified , 10/10/16) Home Medications Scheduled Aspirin (Aspirin EC Low Dose), 81 MG PO QAM Atorvastatin (Atorvastatin Calcium), 80 MG PO QAM Clopidogrel Bisulfate (Clopidogrel), 75 MG PO QAM Dutasteride (Avodart), 0.5 MG PO QPM Tamsulosin Hcl (Flomax), 0.4 MG PO QPM Scheduled PRN Acetaminophen (Tylenol Arthritis Ext Rel), 650 MG PO QAM PRN for Pain Oxycodone/Acetaminophen 5MG/325MG (Percocet 5MG/325MG), 1 TABLET PO Q6H PRN for Pain Current Inpatient Medications Current Inpatient Medications Medications (Trade) Dose Ordered Sig/Syeda Route Start Time Stop Time Status Last Admin Dose Admin Sodium Chloride 1,000 ml @ 80 mls/hr [id number] ONCE IV 10/10/16 09:35 10/10/16 22:04 Hydromorphone HCl (Dilaudid Inj) 0.25 mg Q5M PRN IV 10/10/16 14:45 10/10/16 19:45 Naloxone HCl (Narcan Inj) 0.2 mg Q2M PRN IV 10/10/16 14:45 10/10/16 19:45 Flumazenil (Romazicon Inj) 0.2 mg Q2M PRN IV 10/10/16 14:45 10/10/16 19:45 Ondansetron HCl (Zofran Inj) 4 mg ONE PRN IV 10/10/16 14:45 10/10/16 19:45 Promethazine HCl 12.5 mg/Sodium Chloride 50.5 ml @ 202 mls/hr ONE PRN IV 10/10/16 14:45 10/10/16 19:45 Labetalol HCl (Normodyne IV) 5 mg Q5M PRN IV 10/10/16 14:45 10/10/16 19:45 Ephedrine Sulfate (EpHEDrine SULFATE INJ) 5 mg Q5M PRN IV 10/10/16 14:45 10/10/16 19:45 Atropine Sulfate (Atropine Sulfate 0.1MG/Ml Inj) 0.5 mg Q1M PRN IV 10/10/16 14:45 10/10/16 19:45 Acetaminophen (Tylenol Tab) 650 mg Q4H PRN PO 10/10/16 15:45 11/09/16 15:44 Oxycodone/ Acetaminophen (Percocet 5-325mg Tab) FOR MODERATE PAIN ... Q4H PRN PO 10/10/16 15:45 10/24/16 15:44 Morphine Sulfate (MoRPHine SULFATE INJ) 4 mg Q4H PRN IV 10/10/16 15:45 10/24/16 15:44 Ondansetron HCl (Zofran Inj) 4 mg Q6H PRN IV 10/10/16 15:45 11/09/16 15:44 Cefazolin Sodium 1000 mg/Dextrose 55 ml @ 100 mls/hr Q8H IV 10/10/16 15:45 10/11/16 00:17 UNV Metoprolol Tartrate (Lopressor Iv) 5 mg Q10M PRN IV 10/10/16 15:45 11/09/16 15:44 UNV Nitroglycerin/ Dextrose 250 ml @ 0 mls/hr Q0M PRN IV 10/10/16 15:44 11/09/16 15:43 UNV Sodium Nitroprusside 50 mg/Dextrose 502 ml @ 0 mls/hr Q0M PRN IV 10/10/16 15:44 11/09/16 15:43 UNV Dextrose/Sodium Chloride 1,000 ml @ 125 mls/hr Q8H IV 10/10/16 15:44 11/09/16 15:43 UNV Phenylephrine HCl 20 mg/Dextrose 502 ml @ 0 mls/hr Q0M PRN IV 10/10/16 15:44 11/09/16 15:43 UNV Enoxaparin Sodium (Lovenox Inj) 30 mg Q12H SQ 10/11/16 08:00 11/10/16 07:59 UNV Aspirin (Ecotrin Tab) 81 mg QAM PO 10/11/16 09:00 11/10/16 08:59 UNV Atorvastatin Calcium (Lipitor Tab) 80 mg QAM PO 10/11/16 09:00 11/10/16 08:59 UNV Tamsulosin HCl (Flomax Cap) 0.4 mg QPM PO 10/10/16 21:00 11/09/16 20:59 UNV Non-Formulary Medication (Dutasteride (Avodart)) 0.5 mg QPM PO 10/10/16 21:00 11/09/16 20:59 UNV Review of Systems Constitutional: No fever, No chills Eyes: No worsening of vision, No diplopia ENT: + hearing loss, No trouble swallowing Respiratory: No cough, No shortness of breath Cardiovascular: No chest pain, No palpitations Abdomen: No pain, No diarrhea, No constipation Musculoskeletal: No joint pain, No muscle pain, No swelling Neurologic: No paralysis, No weakness, No numbness/tingling, No vertigo Hematologic / Lymphatic: No abnormal bleeding/bruising, No clotting problems Physical Exam Date Time Temp Pulse Resp B/P (MAP) Pulse Ox O2 Delivery O2 Flow Rate FiO2 10/10/16 17:45 60 16 126/73 (90) 93 Room Air 10/10/16 17:30 36.7 57 16 139/93 (108) 96 Room Air 10/10/16 17:15 52 20 137/81 99 Nasal Cannula 2 10/10/16 17:00 36.0 58 18 136/79 99 Nasal Cannula 2 10/10/16 16:50 55 18 128/72 99 Nasal Cannula 2 10/10/16 16:40 53 16 131/74 99 Nasal Cannula 2 10/10/16 16:30 54 14 123/80 100 Oxymask 10 10/10/16 16:20 61 12 122/76 100 Oxymask 10 10/10/16 16:12 36.0 55 16 135/84 100 Oxymask 10 10/10/16 09:30 36.3 65 20 147/98 100 Room Air General Appearance: well-appearing, no apparent distress Head: normocephalic, atraumatic Eyes: PERRLA, EOMI, sclerae normal, conjunctivae normal ENT: normal throat exam, other (slight deviation of tongue towards the left) Neck: no tenderness, trachea midline, no stridor, supple, no lymphadenopathy, other (linear incision over left carotid artery with mild sweling and minimal erythema) Respiratory: breath sounds normal, clear to auscultation Cardiovasular: regular rate/rhythm, normal S1S2, no murmur, no JVD, normal peripheral pulses Abdomen: non tender, normal bowel sounds, no rebound, no masses, no guarding Upper Extremities: normal ROM Lower Extremities: normal ROM Pulses: carotid (R) (2+), carotid (L) (2+), radial (R) (2+), radial (L) (2+) Neuro: alert, oriented x 3, normal motor exam, normal sensation, normal speech , normal memory, other (very mild left droop of mouth) Reflexes: brachioradialis (R) (2+), brachioradialis (L) (2+), patellar (R) (2+) , patellar (L) (2+) Psychiatric: normal affect Laboratory Results Microbiology Results 10/10/16 MRSA DNA Surveillance Screen, Received Pending Assessment & Plan 61 year old male in stable condition admitted to the ICU post op after outpatient left carotid endarterectomy Neuro - mild left mouth droop and left tongue deviation due to stretching of nerve during surgery - hx of TIA, continue aspirin 81mg tomorrow AM, and lipitor tomorrow AM, plavix currently held (will defer restarting this to the primary team) - CAM - Cardiac - NSR and HR 50-->72 - on oxycodone and morphine PRN for pain control Resp - comfortable and saturating well at room air GI - regular diet ordered - zofran ordered PRN for nausea - 80 mls/hr NS (recommend stopping as patient taking PO) - continue flomax and dutaseride ID - cefazolin q8 IV - monitor for temp Full Code Resident Physician Supervision Note: Dr. Elam was resident physician during care of patient. I separately evaluated patient and did history and exam. I discussed the case with the resident and generally agree with the findings and plan. Documented By: Arnol Devine DO
[2016-10-10] MEDS: METOPROLOL TARTRATE 1 MG/ML VIAL IV PRN ×2 (19:41→20:05)
[2016-10-10] MEDS ORDERED: TAMSULOSIN HCL 0.4 MG CAP PO SCH (21:00)
[2016-10-10] MEDS: CEFAZOLIN IV 1,000 MG in DEXTROSE 5% 50ML 50 ML IV SCH (21:58)
[2016-10-11] VITALS (10 sets, daily range): BP systolic 96–144; BP diastolic 59–95; PULSE 54–81; TEMP 36.3–36.7; O2SAT 95–98
[2016-10-11] MEDS ORDERED: AVODART-ORDER AWAITING ACTION SCH
[2016-10-11] MEDS: D5W AND 1/2NSS 1,000 ML IV SCH (01:59)
[2016-10-11] MEDS: CEFAZOLIN IV 1,000 MG in DEXTROSE 5% 50ML 50 ML IV SCH (05:34)
[2016-10-11] MEDS ORDERED: CEFAZOLIN IV 1,000 MG in DEXTROSE 5% 50ML 50 ML IV ONE (06:00)
--- NOTE | 2016-10-11 07:34 | Progress Note ---
Progress Note Date of Service: Oct 11, 2016. Subjective No complaints. No problems with speech or swallowing Objective Vital Signs Vital Signs Past 12 Hours Date Time Temp Pulse Resp B/P (MAP) Pulse Ox O2 Delivery O2 Flow Rate FiO2 10/11/16 04:01 36.3 14 126/71 (89) 97 Room Air 10/11/16 04:00 Room Air 10/11/16 03:00 54 14 127/79 (95) 98 Room Air 10/11/16 02:01 14 124/76 (92) 96 Room Air 10/11/16 01:01 59 19 144/62 (89) 98 Room Air 10/11/16 00:01 36.7 58 15 132/63 (86) 95 Room Air 10/11/16 00:00 Room Air 10/10/16 23:01 58 14 141/66 (91) 95 Room Air 10/10/16 22:00 67 19 153/74 (100) 95 Room Air 10/10/16 21:31 60 18 146/70 (95) 95 Room Air 10/10/16 21:00 67 19 152/80 (104) 93 Room Air 10/10/16 20:05 70 185/97 10/10/16 20:01 36.7 16 166/105 (125) 96 Room Air 10/10/16 20:00 Room Air 10/10/16 19:41 68 182/99 Exam Awake alert. VSS Afebrile Incision clean and dry. Mild swelling present. No neuro deficits James in place due to unable to void Laboratory and Microbiology Results Past 24 Hours Test 10/10/16 22:11 10/11/16 06:37 Range/Units Bedside Glucose 154 137 70-99 mg/dl Microbiology Results 10/10/16 MRSA DNA Surveillance Screen - Final, Complete Specimen Negative for MRSA by DNA Probe Imp: Post CEA, left side Plan: Doing well Will d/c james. If able to void will d/c. If unable will consult his urologist
[2016-10-11] MEDS ORDERED: OXYC-57 PO (07:41)
--- NOTE | 2016-10-11 07:44 | Discharge Instructions ---
Discharge Instructions Date of Service Oct 11, 2016. Admission Reason for Admission: Left Carotid Stenosis Discharge Discharge Diagnosis / Problem: Left cartoid stenosis, carotid endarterectomy Discharge Goals Goal(s): Therapeutic intervention Activity Recommendations Activity Limitations: per Instructions/Follow-up section . Instructions / Follow-Up Instructions / Follow-Up Call [phone] to schedule a follow up appointment if one not already scheduled. SPECIAL CARE INSTRUCTIONS: Medications: * Continue to take Aspirin as directed. Incision Care: * You may shower, but do not rub incision. You may let the warm soapy water run over it. Be sure to dry the incision well after bathing. * Do not shave directly over the incision until it is healed. * DO NOT IMMERSE THE INCISION IN A TUB/POOL/etc. UNTIL HEALED. Restrictions: * Do not drive for at least one week or if you are still taking any narcotic pain medication. * Do not lift anything heavier than a gallon of milk for one week after going home. Possible Complications: * Numbness - It is normal to have some numbness around the incision. Numbness can extend beyond the incision to areas of the neck, ear and face. The numbness is due to bruising of nerves during the surgery and will gradually improve over a period of months. * Hoarseness/Difficulty Speaking and Swallowing - The bruising of nerves in the neck can also cause a hoarse voice, difficulty speaking or swallowing. This may improve over time, HOWEVER, if it continues for more than a few days please contact our office ([phone]). * Excessive Swelling - There will be some swelling immediately after surgery which usually resolves within one week. If you notice that the swelling is getting worse, notify your surgeon ([phone]). * Drainage/Bleeding - If there is any drainage or bleeding, it should be a very small amount (less than a teaspoon per day). If you have excessive bleeding or drainage from the incision, call your surgeon ([phone]) right away. ACTIVATION OF EMERGENCY MEDICAL SYSTEM: Call [phone], immediately, if you experience any of the following: Warning Signs and Symptoms of Stroke: * Sudden numbness or weakness of the face, arm or leg, especially on one side of the body * Sudden confusion, trouble speaking or understanding * Sudden trouble seeing in one or both eyes * Sudden trouble walking, dizziness, loss of balance or coordination * Sudden severe headache with no cause Do not delay calling 911 if you experience any warning signs or symptoms of a stroke. Delay in seeking medical attention may affect what treatments can be given to you. Risk Factors for Stroke: You can reduce your chances of stroke by working with your medical provider to adopt a healthy lifestyle. Some specific ways to lower your chance of stroke are: * If you are a smoker, now is the time to stop smoking cigarettes * If you are diabetic, improve the control of your blood sugars * Avoid excessive amounts of alcohol * Control high blood pressure * Lose weight if you are overweight * Be sure to lead an active lifestyle * Eat a healthy diet low in salt, cholesterol and fat You should know about other risk factors for stroke that you are unable to control. These include: * Age 55 years or older * Male gender * Certain racial groups: , or / * Family History of Stroke, Mini stroke or Heart Attack * Sickle Cell Disease You will be receiving a call from the Vascular Surgery Nurse after you are discharged. FOLLOW UP VISIT: It is important for you to keep your follow up appointments with your medical provider. Keep any scheduled doctor appointments. Current Hospital Diet Patient's current hospital diet: AHA Diet (Heart Healthy) Discharge Diet Recommended Diet: AHA Diet (Heart Healthy) Procedures Procedures Performed: Left Carotid Endarterectomy with patch Pending Studies Studies pending at discharge: no Laboratory Results Hemoglobin A1c Test 10/07/16 06:38 Range/Units Estimated Average Glucose 126 mg/dl Hemoglobin A1c 6.0 H 4.5-5.6 % Lipid Panel Test 10/07/16 06:38 Range/Units Triglycerides Level 75 0-150 mg/dl Cholesterol Level 201 H 0-200 mg/dl HDL Cholesterol 58 mg/dl Cholesterol/HDL Ratio 3.5 LDL Cholesterol, Calculated 128 mg/dl Medical Emergencies . Who to Call and When: Medical Emergencies: If at any time you feel your situation is an emergency, please call 911 immediately. . Non-Emergent Contact Non-Emergency issues call your: Surgeon . "Provider Documentation" section prepared by Channing Toledo. . VTE Core Measure Inpt VTE Proph given/why not?: Enoxaparin (Lovenox)SQ, SCD's [place] Drug Monitoring Program Search Results: no issues identified
[2016-10-11] MEDS ORDERED: ENOXAPARIN 30 MG/0.3 ML SYR SQ SCH (08:00)
[2016-10-11] MEDS ORDERED: ASPIRIN 81 MG ECTAB PO SCH (09:00)
[2016-10-11] MEDS ORDERED: ATORVASTATIN 40 MG TAB PO SCH (09:00)
--- NOTE | 2016-10-11 09:28 | Progress Note ---
Progress Note Date of Service Oct 11, 2016. Progress Note 61yo m POD #1 after L CEA. Advised by RN that pt had approx 3-5 min episode of bradycardia with HR 42, and associated hypotension~ 60/40, and pt c/o feeling like he was going to "pass out." Pt denies any prior similar episodes aside from single syncopal episode 15-20 yr ago while lifting something heavy at work. Discussed with [place], recommends pt be eval by cardiology and have 12- lead EKG.
[2016-10-11 11:56] LABS: HEMATOCRIT 43.8 % (42-52); MEAN CELL VOLUME 87.4 fL (80-100); MEAN CORPUSCULAR HEMOGLOBIN 28.5 pg (25-34); MEAN CORPUSCULAR HGB CONC 32.6 g/dl (32-36); MEAN PLATELET VOLUME 9.6 fL (7.4-10.4); PLATELET COUNT 227 K/uL (130-400); RED BLOOD COUNT 5.01 M/uL (4.7-6.1); WHITE BLOOD COUNT 12.57 K/uL (4.8-10.8)
[2016-10-11 12:13] LABS: BUN/CREATININE RATIO 11.3 (10-20); CALCIUM 8.9 mg/dl (8.5-10.1); CREATININE 1.1 mg/dl (0.60-1.40); POTASSIUM 3.8 mmol/L (3.5-5.1)
--- NOTE | 2016-10-11 12:15 | CARDIOLOGY CONSULTATION ---
DATE OF CONSULTATION: 10/11/2016 DATE OF CONSULTATION: 10/11/2016 INDICATIONS: Lightheadedness, dizziness, bradycardia. HISTORY OF PRESENT ILLNESS: The patient is a 61-year-old male recently admitted with transient right arm weakness and paresthesias with near complete loss of use of right arm for approximately 2 hours. Subsequent neurologic evaluation revealed evidence of significant left carotid stenosis and patient was referred and underwent left carotid endarterectomy on 10/10/2016. The procedure was uneventful per reports. Last evening he had significant elevated blood pressures post procedure finding as well as in association with acute urinary retention. Olivia was placed with significant diuresis of greater than 1600 mL with improvement in blood pressures. The patient in the interim had received 5 mg IV metoprolol as management. He notes he usually takes tamsulosin at home and Avodart. These both have been held appropriately for procedure. This morning while sitting out at bedside he became lightheaded, had transient drop in blood pressures in the 60s by A-line and drop in heart rates into the high 40s by telemetry. He does carry a history of past vasovagal complaints, symptoms resolved on returning to bed. There were no arrhythmias noted on telemetry. EKG done at that time demonstrated sinus bradycardia with normal tracing. He denies any chest pains or discomfort. Notes no prior history of chest pain or discomfort. Notes no exertional complaints and up until time of recent neurologic event had been asymptomatic. Notes no fevers, chills or productive cough. Notes no bleeding difficulties. Notes no melena, hematochezia, dysuria, or hematuria. Appetite and weight have been stable. Exercise capacity above 7 mets by history without decline. REVIEW OF SYSTEMS: Otherwise negative. ALLERGIES: None. MEDICATIONS: Prior to hospitalization were aspirin 81 mg per day, atorvastatin 80 mg per day as recent addition, clopidogrel 75 mg p.o. daily, Avodart 0.5 mg q. p.m., Flomax 0.4 mg q. p.m. PAST SURGICAL HISTORY: Notable for prior herniorrhaphy. FAMILY HISTORY: Positive for heart disease in 1 family member. SOCIAL HISTORY: The patient resides in [place]. He works in the [employer]. He is a nonsmoker, very rare alcohol user. Uses no significant [id number] medications. Dr. Jones is his primary care physician. PHYSICAL EXAMINATION: VITAL SIGNS: Heart rate 68, blood pressure is 138/95. HEAD, EYES, EARS, NOSE, AND THROAT EXAMINATION: Normocephalic, atraumatic. Nares without discharge. Throat was clear. NECK: Reveals healing carotid endarterectomy scar. LUNGS: Clear to auscultation. CARDIOVASCULAR EXAMINATION: Regular with normal S1, S2. There is no murmur, gallop or rub. ABDOMEN: Soft, nontender. EXTREMITIES: Without cyanosis or clubbing. There is no peripheral edema. There are intact distal pulses. There is no focal neurologic deficits. LABORATORY DATA: Echocardiogram done last admission demonstrates sinus rhythm with a rate of 65 with aortic sclerosis without stenosis, trace aortic, mitral and tricuspid insufficiency only. No laboratory studies were performed this admission other than point of care glucoses. Telemetry was reviewed in detail, which demonstrates sinus and sinus bradycardia, minimum rates during symptomatic event of lightheadedness and hypotension revealed sinus bradycardia, rate of 43. IMPRESSION: A 61-year-old male status post left carotid endarterectomy with transient vasovagal event this morning while sitting out of bed in chair. The evening prior is notable for transient urinary retention as well as single dose of IV metoprolol having been administered. The patient is now asymptomatic. No EKG changes to suggest ischemia or other underlying cardiac etiology. RECOMMENDATIONS: Would gradually increase activities once again later today. Electrolytes will be ordered for this morning as well as CBC postop. If the patient is ambulatory without difficulty or complaint he is stable for discharge later this afternoon. In the interim, would continue as ordered aspirin as well as lipid reduction given documented atherosclerosis as cardiac risk factor. LAKEISHA
--- NOTE | 2016-10-18 11:37 | DISCHARGE SUMMARY ---
ADMISSION DIAGNOSIS: Left internal carotid artery stenosis with transient ischemic attack. DISCHARGE DIAGNOSES: 1. Status post left carotid endarterectomy with patch. 2. Left internal carotid artery stenosis with transient ischemic attack. DISCHARGE CONDITION: Stable. CONSULTATIONS IN THE HOSPITAL: Included critical care and cardiology. PROCEDURES IN THE HOSPITAL: Included; a left carotid endarterectomy with patch performed on 10/10/2016 with an EBL of 80 mL and no other significant complications. HISTORY OF PRESENT ILLNESS: Mr. Crowell is a 61-year-old male who presented to [facility] due to weakness of his right arm which came on suddenly and resolved in about 30 minutes. He was essentially active individual and due to a severe left internal carotid coronary artery stenosis, he was recommended to the see Dr. Toledo for further evaluation and recommendations regarding possible surgery. Due to his symptoms and the degree of stenosis of his left internal carotid artery, he was recommended to undergo a carotid endarterectomy procedure. The procedure, risks, benefits and alternatives were discussed at length with the patient and he expressed understanding and agreement to proceed. HOSPITAL COURSE: The patient was admitted on 10/10/2016 after undergoing his left internal carotid artery endarterectomy and was performed without significant complications and an EBL of 80 mL. The patient remained essentially stable postoperatively. He did have stable labs. His vital signs did indicate some episodic hypotension associated with bradycardia for which he was seen by cardiology and cleared for discharge. The remainder of his time was spent with normal pulse and blood pressure. He continued to improve in general and was felt to be stable enough for discharge later in the day on postop day #1. PHYSICAL EXAMINATION: VITAL SIGNS: On day of discharge, his vital signs were as follows: A temperature of 36.3, pulse of 81, respiratory rate of 23 and blood pressure 120/85 with pulse oximetry of 97% on room air. CONSTITUTIONAL: The patient is a healthy-appearing for age, well-nourished, well developed middle-aged male in no acute distress. He ambulates without assistance and is active, alert and oriented x4 with normal recent and remote memory. HEAD: Normocephalic and atraumatic. EYES: EOMI. ENMT: Demonstrates no hearing loss, rhinorrhea or pharyngeal erythema. NECK: Right side of the neck was supple, nontender. His trachea was midline. His left neck surgical incision is well approximated and healing appropriately for postop day 1. He does have some edema, ecchymosis and tenderness to this area. There is no erythema or drainage noted. HEART: Demonstrates a regular rate and rhythm without murmurs. LUNGS: Decreased but clear. ABDOMEN: Soft, nontender with normoactive bowel sounds. EXTREMITIES: His pulses are +3 in brachial, radial and femoral pulses. Lower extremity distal pulses are +2. He has brisk capillary refill and no sign of distal ischemia. NEUROLOGIC: He has no focal deficits, he moves all extremities equally and is without facial droop or pronator drift. DIET UPON DISCHARGE: Should be a low-cholesterol AHA diet. MEDICATIONS: Reconciled on the chart and are as per his discharge instructions. FOLLOWUP: Should be with Dr. Toledo or his PA, Marisela Mckoy within 2 weeks for reevaluation. He should follow up his family physician or triage specialist within 1-2 weeks as well regarding his episodic bradycardia. He is advised to call our office with any other questions. LAKEISHA
== END 2016-10-11 16:38 | disposition home or self-care (01) | DRG 39 ==
LOC: C.ACU 07:10 → C.MSICU 15:49 → ENRESERV 16:59
PROVIDERS: ADMIT Surgery Vascular Surgery; ATTEND Surgery Vascular Surgery
PROC: 03UL0JZ Supplement Left Internal Carotid Artery with Synthetic Substitute, Open Approach (ICD-10-PCS; principal; 2016-10-10 09:00)
PROC: 03CN0ZZ Extirpation of Matter from Left External Carotid Artery, Open Approach (ICD-10-PCS; principal; 2016-10-10 09:00)
DX: I65.22 Occlusion and stenosis of left carotid artery (principal); R00.1 Bradycardia, unspecified; R55 Syncope and collapse; N40.1 Benign prostatic hyperplasia with lower urinary tract symptoms; R33.9 Retention of urine, unspecified; E78.5 Hyperlipidemia, unspecified; M19.90 Unspecified osteoarthritis, unspecified site; Z86.73 Personal history of transient ischemic attack (TIA), and cerebral infarction without residual deficits; Z79.02 Long term (current) use of antithrombotics/antiplatelets; Z79.82 Long term (current) use of aspirin; Z79.899 Other long term (current) drug therapy; G45.9 Transient cerebral ischemic attack, unspecified; R03.0 Elevated blood-pressure reading, without diagnosis of hypertension; Z82.49 Family history of ischemic heart disease and other diseases of the circulatory system

== ENCOUNTER → 2016-12-05 | Outpatient (CLI) | payer BC ==
[~2016-12-05] MED LIST changes: +OXYC-57 PO; -PLV75 PO
--- NOTE | 2016-12-05 15:59 | DIAGNOSTIC IMAGING REPORT ---
KUB CLINICAL HISTORY: N20.0 [id number] COMPARISON STUDY: 12/07/2015 FINDINGS: There is no pathologic bowel dilatation. The renal shadows are partially obscured by overlying bowel gas and fecal material. There is a 2 mm calcification projected over the midpole the left kidney suspicious for a calculus. Pelvic basin calcifications remain unchanged in orientation the prior study favoring phleboliths. There are advanced arthritic changes involving the right hip. IMPRESSION: Stable 2 mm left renal calculus. Electronically signed by: Nickolas Pierce M.D. 12/05/2016 3:57 PM Dictated Date/Time: 12/05/2016 3:56 PM
[2016-12-05 16:07] LABS: BLOOD UREA NITROGEN 24 mg/dl (7-18); BUN/CREATININE RATIO 23.8 (10-20); CREATININE 1.02 mg/dl (0.60-1.40)
--- NOTE | 2016-12-12 12:32 | CODING QUERY MEDICAL NECESSITY ---
SUPPORTING DIAGNOSIS NEEDED A supporting diagnosis is required for the test/procedure performed on this patient in order for us to be reimbursed by the patient's insurance. Please provide a supporting diagnosis for the following test/procedure listed below next to the test name along with your signature. *If there is no additional diagnosis for this patient that would support the following test/procedure please document that below next to the test/procedure. Test(s)/Procedure(s) that require a supporting diagnosis: * PSA DIAGNOSIS: Provider Signature: Date: Thank you Heidi Becker [employer] Once completed, please kindly fax back to [phone] For questions please call [phone]
== END | disposition home or self-care (01) ==
LOC: C.RAD 14:59
PROVIDERS: ATTEND Urology
DX: N20.0 Calculus of kidney (principal)

== ENCOUNTER 2017-04-23 18:56 | Emergency (ER) | payer BC, OTHER ==
[~2017-04-23] VITALS: Ht 180.3 cm; Wt 97.5 kg
[~2017-04-23 18:56] MED LIST changes: -OXYC-57 PO
[2017-04-23 19:05] VITALS: TEMP 36.7; Ht 180.3 cm; Wt 97.5 kg
[2017-04-23] MEDS ORDERED: GELATIN SPONGE 12-7MM EXT ONE ×2 (19:30)
[2017-04-23] MEDS ORDERED: ASPI81TA28 PO (19:40)
[2017-04-23] MEDS ORDERED: ATOR-26 PO (19:40)
[2017-04-23 20:15] VITALS: BP 148/66; PULSE 55; O2SAT 98
--- NOTE | 2017-04-24 00:19 | EMERGENCY ROOM VISIT NOTE ---
ED Visit Note First contact with patient: 19:14 Chief Complaint: I cut my left middle and ring finger. History of Present Illness: Mr. Crowell is a 62-year-old white male who ambulates into the ED accompanied by his complaining of left middle and ring finger soft tissue injuries. Patient reports approximately 6 hours ago he was carrying a glass picture frame. He was attempting to go through a door and when he moved his hand he sustained soft tissue injuries to the medial aspect of the distal phalanx of both the left middle and left ring finger. He reports he wash the wound and attempted to control bleeding but was unsuccessful in controlling bleeding and since the injury 6 hours ago his wound continues to ooze blood. He reports he is use multiple attempts including direct pressure and different types of bandages was unsuccessful. Associated with his wounds he reports he is having just a mild stinging discomfort in the area of the wounds. He rates his discomfort 1/10. The pain is nonradiating. The pain worsens with palpation. He has not identified any alleviating factors related to the pain. He has not taken medication for pain prior to arrival at the hospital. He denies any associated symptoms except the bleeding. Additionally patient does report he takes aspirin for a previous TIA but is on no other blood thinners at this time. Review of Systems: As noted above in history of present illness. Past Medical History: As previously noted, hip arthritis, status post carotid endarterectomy. Current Medications: Medications Dose Route/Sig Max Daily Dose Days Date Category Lipitor (Atorvastatin Calcium) 80 Mg Tab 80 Mg PO DAILY 04/23/17 Reported Aspirin Ec (Aspirin) 81 Mg Tab 81 Mg PO DAILY 04/23/17 Reported Tylenol Arthritis Ext Rel (Acetaminophen) 650 Mg Cplt 650 Mg PO QAM PRN 10/07/16 Reported Avodart (Dutasteride) 0.5 Mg Cap 0.5 Mg PO QPM 10/07/16 Reported Flomax (Tamsulosin Hcl) 0.4 Mg Cap 0.4 Mg PO QPM 10/07/16 Reported Allergies to Medications: Patient denies. Social History: Patient is currently employed; he feels safe in his home environment; he denies tobacco and alcohol use. Tetanus Immunization Status: Patient reports up-to-date. Physical Examination: Vital Signs: Date Time Temp Pulse Resp B/P (MAP) Pulse Ox O2 Delivery O2 Flow Rate FiO2 04/23/17 20:15 55 18 148/66 98 04/23/17 19:05 36.7 66 18 150/90 96 Room Air GENERAL: 62-year-old male in no acute distress, nontoxic-appearing, afebrile and hemodynamically stable. NEUROLOGICAL: Awake, alert and oriented to person, place and time. Answering questions appropriately and following commands. SKIN: Warm, dry and pink. Right Middle and Ring Fingers over the medial aspect of the distal phalanxes patient has skin avulsions measuring approximately 1.1 cm and 0.8 cm respectively. There is continued bleeding from the wounds. RIGHT HAND: No gross bony deformities. Soft tissue skin avulsions as described above. Full range of motion in flexion and extension of the MCP, PIP and DIP joint of the middle and ring fingers. Throughout these fingers the skin was warm and pink and capillary refill was brisk. He was able to distinguish light sensations to all dermatomes of these fingers. Ring and ED Course: Patient is assessed as noted above. Patient's medication list was reviewed. Patient's wounds were prepped with Betadine and a sterile field was set. The avulsions were explored and no foreign bodies were noted. The wounds were irrigated with normal saline. Patient's wounds were covered with Surgifoam and sterile dressings. Patient was educated about today's findings and instructed on his treatment plan ; he verbalized understanding and agreement with this plan. Clinical Impression: Skin avulsions of the right middle and ring fingers. Disposition: Patient discharged home in stable condition; prior to departure he was reassessed and subjectively reported he was pain and symptom-free. Plan: Comfort measures, wound care, and signs of infection were discussed with the patient. Patient was encouraged to follow-up with personal physician or return emergency department for return of bleeding, signs of infection or any new/concerning symptoms.
== END 2017-04-23 20:16 | disposition home or self-care (01) ==
LOC: C.EDB 18:58 → C.EDD 20:16
DX: S61.202A Unspecified open wound of right middle finger without damage to nail, initial encounter (principal); S61.204A Unspecified open wound of right ring finger without damage to nail, initial encounter; W25.XXXA Contact with sharp glass, initial encounter; M16.10 Unilateral primary osteoarthritis, unspecified hip; Z79.82 Long term (current) use of aspirin; Z98.890 Other specified postprocedural states

== ENCOUNTER 2017-07-06 05:04 | Inpatient (IN) | payer OTHER ==
[2017-06-06 09:22] VITALS: BMI 29.0
[2017-06-06 11:39] LABS: BASO % 0.3 %; BASO ABS # 0.02 K/uL (0-0.2); EOS % 2.6 %; EOS ABS # 0.16 K/uL (0-0.5); HEMATOCRIT 44.1 % (42-52); HEMOGLOBIN 14.6 g/dL (14.0-18.0); LYMPH % 34.4 %; LYMPH ABS # 2.09 K/uL (1.2-3.4); MEAN CELL VOLUME 86.8 fL (80-100); MEAN CORPUSCULAR HEMOGLOBIN 28.7 pg (25-34); MEAN CORPUSCULAR HGB CONC 33.1 g/dl (32-36); MEAN PLATELET VOLUME 9.8 fL (7.4-10.4); MONO % 8.4 %; MONO ABS # 0.51 K/uL (0.11-0.59); NEUT % 54.3 %; NEUT ABS # 3.29 K/uL (1.4-6.5); PLATELET COUNT 207 K/uL (130-400); RED CELL DISTRIBUTION WIDTH CV 13.7 % (11.5-14.5); RED CELL DISTRIBUTION WIDTH SD 43.9 fL (36.4-46.3); WHITE BLOOD COUNT 6.07 K/uL (4.8-10.8)
[2017-06-06 11:46] LABS: CALCIUM 9.1 mg/dl (8.5-10.1); CREATININE 1.03 mg/dl (0.60-1.40); POTASSIUM 4.7 mmol/L (3.5-5.1)
[2017-06-06 11:48] LABS: PTT PATIENT 27.6 SECONDS (21.0-31.0)
--- NOTE | 2017-06-06 12:11 | DIAGNOSTIC IMAGING REPORT ---
CHEST 2 VIEWS ROUTINE CLINICAL HISTORY: Preoperative evaluation. COMPARISON STUDY: Chest radiograph January 25, 2006. FINDINGS: There is mild elevation/eventration of the right hemidiaphragm. No pneumothorax or pleural effusion is noted. There is no consolidation to suggest pneumonia. Mild cardiomegaly is noted. IMPRESSION: 1. No acute cardiopulmonary findings. 2. Mild cardiomegaly. Electronically signed by: Juan Antonio Aparicio M.D. 06/06/2017 12:10 PM Dictated Date/Time: 06/06/2017 12:09 PM
--- NOTE | 2017-06-29 18:25 | HISTORY & PHYSICAL EXAMINATION ---
DATE OF ADMISSION: 07/06/2017 CHIEF COMPLAINT: Right hip pain, discomfort and stiffness. HISTORY OF PRESENT ILLNESS: A 62-year-old male presents for surgical treatment of his right hip. He has got fairly long history of right hip pain and discomfort that has gradually just gotten worse over the past several years. He has tried to maintain an active lifestyle, but having more difficulty doing this. He swims and bikes regularly but having more and more difficulty doing this. He describes groin pain, thigh pain. He has difficulty putting his shoes and socks on. He has nighttime pain. The more active he is the more it hurts. He would like to have his right hip replaced. PAST MEDICAL HISTORY: Significant for: 1. TIA status post recent endarterectomy 09/[address] Toledo. 2. Low back pain/sciatica. 3. Osteoarthritis. 4. BPH. 5. Kidney stones. PAST SURGICAL HISTORY: Previous surgeries include endarterectomy done on 10/10/2016 by [place]. ALLERGIES: None. CURRENT MEDICINES: Include: 1. Atorvastatin. 2. Flomax. 3. Aspirin 81 mg. 4. Avodart. SOCIAL HISTORY: A 62-year-old male. Works at [employer] at [employer]. Very active. Exercise regularly. Does not smoke. One drink per day. He is . FAMILY HISTORY: Significant for arthritis and heart disease. REVIEW OF SYSTEMS: Significant for this TIA without any residual sequelae. He has had a carotid endarterectomy and is on baby aspirin. Denies any chest pain, no shortness of breath. No history of DVT or PE. No known bleeding problems. PHYSICAL EXAMINATION: GENERAL: This is a pleasant, healthy-appearing, middle-aged male. HEENT: Benign. NECK: Supple. No lymphadenopathy. LUNGS: Clear to auscultation. HEART: Regular rate and rhythm. ABDOMEN: Soft, nontender, nondistended. EXTREMITIES: Grossly neurovascularly intact except as follows: Examination of the right hip and leg reveals patient walks with a markedly antalgic gait. He keeps his foot externally rotated. Very stiff hip. He has got about 10 degree external rotation contracture. He has pain with any type of hip motion. Negative straight leg raise. No knee effusion. X-RAYS: X-ray of the right hip reviewed. Shows advanced right hip DJD. He has got complete loss of his joint space. He has got cystic changes of the femoral head and acetabulum. ASSESSMENT: A 62-year-old male with advanced right hip degenerative joint disease, failed conservative treatment. He would like to have his right hip replaced. He has done a remarkable job and maintaining an active lifestyle despite his hip arthritis. PLAN: We are going to proceed with right total hip replacement. The risks and benefits of this procedure were explained to the patient including but not limited to DVT, PE, , infection, neurological injury, vascular injury, bleeding problem, pain, limited range of motion, stiffness, failure to relieve symptoms, incomplete relief of symptoms, need for further surgery in the future, fracture, leg length inequality, nerve palsy, etc. The patient understands and desires to proceed. Informed consent was obtained. We will use aspirin for DVT prophylaxis 81 mg twice a day. Plan to be discharged home using [facility] home health program.
[~2017-07-06] VITALS: Ht 180.3 cm; Wt 96.6 kg
[2017-07-06] VITALS (10 sets, daily range): BP systolic 111–158; BP diastolic 64–93; PULSE 57–76; TEMP 36.3–37.5; O2SAT 95–99; Ht 180.3 cm; Wt 96.6 kg
[~2017-07-06 05:04] MED LIST changes: -ASPEC81 PO; +ASPI81TA28 PO; +ATOR-26 PO; -LPT40 PO; +TERB250T22 PO
[2017-07-06] MEDS ORDERED: METOCLOPRAMIDE HCL 10 MG TAB PO ONE (06:10)
[2017-07-06] MEDS ORDERED: CEFAZOLIN SOD 2000MG/15 ML IV PUSH ONE (06:10)
[2017-07-06] MEDS ORDERED: FAMOTIDINE 20 MG TAB ONE (06:10)
[2017-07-06] MEDS ORDERED: GABAPENTIN 300 MG CAP PO ONE (06:10)
[2017-07-06] MEDS ORDERED: ACETAMINOPHEN 500 MG TAB ONE (06:10)
[2017-07-06] MEDS ORDERED: SCOPOLAMINE 1.5 MG TDSY TD ONE (06:10)
[2017-07-06] MEDS ORDERED: FENTANYL CITRATE INJ 50 MCG/1 ML 2 ML VIAL ONE (06:29)
[2017-07-06] MEDS ORDERED: MIDAZOLAM HCL 1 MG/ML 2ML VIAL ONE (06:30)
[2017-07-06] MEDS ORDERED: SODIUM CHLORIDE 0.9% PF 50 ML VIAL ONE (06:40)
[2017-07-06] MEDS ORDERED: BACITRACIN 50000 UNIT VIAL ONE (06:40)
[2017-07-06] MEDS ORDERED: BUPIVACAINE LIPOSOME 1/3% 266 MG/20 ML VIAL ONE (06:40)
[2017-07-06] MEDS ORDERED: BUPIVACAINE 0.25% 30 ML VIAL ONE (06:41)
[2017-07-06] MEDS ORDERED: NURSING VERBAL MED ORDER STA (06:41)
[2017-07-06] MEDS ORDERED: EpINEphrine INJ 1MG/ML AMP 1 MG/ML AMP ONE ×2 (06:41→06:50)
[2017-07-06] MEDS ORDERED: BUPIVACAINE 0.5 % 5 MG/1 ML PF 10ML VIAL ONE (06:41)
[2017-07-06] MEDS: TRANEXAMIC ACID INJ 1,000 MG in SODIUM CHLORIDE 0.9% 100ML 100 ML IV SCH ×2 (06:45→07:00)
[2017-07-06] MEDS ORDERED: ONDANSETRON INJ 2 MG/ML 2 ML VIAL ONE (07:50)
[2017-07-06] MEDS ORDERED: EpHEDrine SULFATE 50MG/5ML SYR ONE (07:50)
[2017-07-06] MEDS ORDERED: PROPOFOL IV EMULSION 10 MG/ML 20 ML VIAL ONE (07:50)
[2017-07-06] MEDS ORDERED: PHENYLEPHRINE 100MCG/ML 5ML SYR ONE (07:50)
[2017-07-06] MEDS ORDERED: ROPIVACAINE 0.5% 5 MG/ML 30 ML VIAL INFIL SCH (08:00)
[2017-07-06] MEDS ORDERED: ATROPINE SULFATE 0.1 MG/ML 5ML SYR IV PRN (08:30)
[2017-07-06] MEDS ORDERED: EpHEDrine SULFATE INJ 50 MG/ML AMP IV PRN (08:30)
--- NOTE | 2017-07-06 08:38 | [facility] Post Operative Brief Note ---
Immediate Operative Summary Operative Date July 06, 2017. Pre-Operative Diagnosis Advanced right hip degenerative joint disease Post-Operative Diagnosis Advanced right hip degenerative joint disease Procedure(s) Performed Right total hip arthroplasty uncemented Surgeon Dr. Syed Wei Steamfitter Surgeon(s) Ben Florez PA-C Estimated Blood Loss 400cc Findings Consistent with Post-Op Diagnosis Specimens A. Right femoral head Drains None Anesthesia Type Spinal MAC Complication(s) none Disposition Accompanied Pt To Recover: yes Disposition: Recovery Room / PACU Overlapping Procedure I was present for: the critical portions of procedure. I was immediately available: during the entire case
[2017-07-06] MEDS ORDERED: ONDANSETRON INJ 2 MG/ML 2 ML VIAL IV PRN (08:45)
[2017-07-06] MEDS ORDERED: SILVER SULFADIAZINE 1% CR 50 GM JAR EXT PRN (08:45)
[2017-07-06] MEDS ORDERED: MoRPHine SULFATE 4 MG/ML 1 ML CARP\\VIAL IV PRN (08:45)
[2017-07-06] MEDS ORDERED: TERBINAFINE 250 MG TAB PO PRN (08:45)
[2017-07-06] MEDS ORDERED: BISACODYL 10 MG SUPP PR PRN (08:45)
[2017-07-06] MEDS ORDERED: DiphenhydrAMINE HCL 50 MG/ML VIAL IV PRN (08:45)
[2017-07-06] MEDS ORDERED: TAMSULOSIN HCL 0.4 MG CAP PO PRN (08:45)
[2017-07-06] MEDS ORDERED: ZOLPIDEM TARTRATE 5 MG TAB PO PRN (08:45)
[2017-07-06] MEDS ORDERED: METOCLOPRAMIDE HCL INJ 5 MG/ML 2 ML VIAL IV PRN (08:45)
[2017-07-06] MEDS ORDERED: MAGNESIUM HYDROXIDE SUSP 30 ML UDC PO PRN (08:45)
[2017-07-06] MEDS ORDERED: MEPERIDINE HCL 25 MG/ML CARP ONE (08:54)
--- NOTE | 2017-07-06 09:28 | DIAGNOSTIC IMAGING REPORT ---
R PELVIS/UNILATERAL HIP 1 VIEW HISTORY: 62 years-old Male IN PACU - A/P PELVIS and LATERAL HIP INCLUDING ALL OF IMPLANT status post right hip arthroplasty. Degenerative joint disease. COMPARISON: Right hip radiographs 06/29/2017 TECHNIQUE: AP view of the pelvis with frog-leg view of the right hip FINDINGS: Postoperative changes from placement of a right hip total joint arthroplasty which appears to be in satisfactory positioning. No evidence of acute fracture, malalignment or retained foreign body. Lateral skin laura with expected postsurgical soft tissue swelling and deep tissue air. Linear calcifications of the medial right calf redemonstrated. Phleboliths of the pelvis. Moderate left hip osteoarthritis. Olivia catheter noted. IMPRESSION: Right hip arthroplasty with satisfactory alignment. The above report was generated using voice recognition software. It may contain grammatical, syntax or spelling errors. Electronically signed by: Rigo Wang M.D. 07/06/2017 9:27 AM Dictated Date/Time: 07/06/2017 9:16 AM
--- NOTE | 2017-07-06 09:33 | Anesthesiology Progress Note ---
Anesthesia Post Op Note Date & Time July 06, 2017 at 09:32 Vital Signs Pain Intensity: 0 Vital Signs Past 12 Hours Date Time Temp Pulse Resp B/P (MAP) Pulse Ox O2 Delivery O2 Flow Rate FiO2 07/06/17 09:15 36.3 62 15 110/54 98 Nasal Cannula 2 07/06/17 09:05 65 18 107/63 99 Nasal Cannula 2 07/06/17 08:55 61 16 113/61 99 Nasal Cannula 2 07/06/17 08:45 73 18 103/55 100 Nasal Cannula 2 07/06/17 08:39 36.3 67 16 99/95 (60) 100 Oxymask 10 07/06/17 05:30 36.6 60 20 138/81 95 Notes Mental Status: alert / awake / arousable, participated in evaluation Pt Amnestic to Procedure: Yes Nausea / Vomiting: adequately controlled Pain: adequately controlled Airway Patency, RR, SpO2: stable & adequate BP & HR: stable & adequate Hydration State: stable & adequate Neuraxial Anesthesia: was administered, sensory block is resolving Anesthetic Complications: no major complications apparent
[2017-07-06] MEDS ORDERED: MEPERIDINE HCL 25 MG/ML CARP IV PRN (09:45)
[2017-07-06] MEDS: D5W AND 1/2NSS + 20MEQ KCL 1,000 ML IV SCH ×2 (10:56→19:15)
[2017-07-06] MEDS: KETOROLAC TROMETHAMINE 30 MG/ML VIAL IV. SCH ×3 (11:31→23:25)
[2017-07-06] MEDS: FERROUS GLUCONATE 324 MG TAB PO SCH ×2 (12:35→17:49)
[2017-07-06] MEDS: ACETAMINOPHEN 500 MG TAB PO SCH ×2 (13:46→22:13)
[2017-07-06] MEDS ORDERED: TRANEXAMIC ACID INJ 1,000 MG in SODIUM CHLORIDE 0.9% 100ML 100 ML IV ONE (15:00)
[2017-07-06] MEDS: CEFAZOLIN IV 2,000 MG in SYRINGE 0 ML IV SCH ×2 (15:53→23:25)
[2017-07-06] MEDS: AVODART-ORDER AWAITING ACTION SCH ×2 (16:00→23:26)
--- NOTE | 2017-07-06 16:12 | OPERATIVE REPORT ---
DATE OF OPERATION: 07/06/2017 SURGEON: Syed Wei M.D. NUMERICAL CONTROL DRILL PRESS OPERATOR: LAUREEN Gallego. PREOPERATIVE DIAGNOSIS: Right hip degenerative joint disease. POSTOPERATIVE DIAGNOSIS: Right hip degenerative joint disease. PROCEDURE PERFORMED: Right uncemented ceramic on highly cross-linked polyethylene total hip arthroplasty. COMPLICATIONS: None. ESTIMATED BLOOD LOSS: 400 mL FLUID REPLACEMENT: 1500 mL crystalloid fluid replacement. ANESTHESIA: Spinal. DRAINS: None. SPECIMENS: Right femoral head sent for pathology. OPERATIVE INDICATIONS: The patient is a 62-year-old gentleman who has had several year history of right hip pain and discomfort that has gradually just gotten worse over time. He has become more debilitated by his pain. This is having trouble even getting around and doing activities. He has lost his ability to maintain any degree of activity during daily life and elected to proceed with total hip arthroplasty. OPERATIVE FINDINGS: Operative findings revealed advanced right hip DJD. Grade 4 [id number] disease of the femoral head and acetabulum. Moderate-sized joint effusion. Some moderate synovitis. OPERATIVE IMPLANTS: Operative implants consisted of: 1. Biomet G7 size 54 mm acetabular shell. 2. A 6.5 cancellous acetabular screws, one 35 mm length and one 25 mm length. 3. An apex hole eliminator. 4. Highly cross-linked polyethylene liner with a 54 mm outer diameter with a 36 mm inner diameter with a coto placed inferior and posterior. 5. A DePuy Corail size 13 KLA/coxa vara femoral stem. 6. A +5/36 mm ceramic articular ball. OPERATIVE PROCEDURE: The patient was taken to the operating room, identified and placed on the operative table in supine position. All contact areas were appropriately padded. IV antibiotics were provided by anesthesia team. A spinal anesthetic had been implemented in the holding area. Olivia catheter was placed in sterile fashion. The patient was then placed in the left lateral decubitus position. An axillary roll was placed. Stlberg hip positioner was used for positioning. The right hip and leg were then prepped and draped in usual sterile fashion. A posterolateral approach to the right hip was then performed through a curvilinear incision centered over the greater trochanter. Sharp dissection was carried through the subcutaneous tissue down to the level of the IT band and gluteal fascia. The IT band and gluteal fascia was incised longitudinally in line with the skin incision. The underlying greater trochanteric bursa was excised. The piriformis and external rotators were tagged and taken off the posterior aspect of the femur. Great care was taken throughout the procedure to protect the sciatic nerve at all times. A posterior capsulotomy was then performed leaving a large flap for later repair. It was internally rotated and dislocated. Femoral neck osteotomy cut was made with the final cut about 9 mm above the lesser trochanter. Femoral head was removed and sent for pathology. The femur was retracted anteriorly. Attention was then drawn to the acetabulum. The acetabulum labrum was excised. The pulvinar fat was excised. Sequential reaming of the acetabulum was then performed beginning with a size 47 and progressing up to a 53. A 54 mm Biomet G7 acetabular shell was then placed in about 40 degrees of lateral opening and 20 degrees of anteversion. It was fixed with two 6.5 cancellous acetabular screws. A trial liner was placed. Attention was then drawn to the femur. The proximal femur was entered with a cookie cutter followed by canal finder. I then broached beginning with a size 8 and progressing up to a 13. We got excellent fit at 13. I then trialed the hip. Leg lengths and soft tissue tension seemed appropriate with a +5 head. The hip was fully stable in full extension and external rotation and flexion to 90 degrees, internal rotation to 50+ degrees. I did place a coto inferior and posterior to maximize stability in flexion. Attention was then drawn toward placement of the permanent components. All trial components were removed. An apex hole eliminator was placed. Highly cross-linked polyethylene liner was placed with a coto, placed inferior and posterior. A size 13 KLA/coxa vara femoral stem was impacted in position. A +5/36 mm ceramic articular ball was placed. Hip was located and once again found to be stable. Attention was drawn toward closing. The wound was irrigated with copious amounts of pulsatile lavage solution. I did inject locally with 60 mL of 0.5% ropivacaine with epinephrine. The posterior capsule and external rotators were then repaired through drill holes in the posterior trochanter with #2 Ti-Cron suture. The IT band and gluteal fascia were then closed with #1 PDS suture in running fashion. The subcutaneous tissues were closed with two layers with deep layer #1 Vicryl suture, subcutaneous tissue with #2 Dexon suture in a buried interrupted fashion. Skin was then closed with skin laura. Leg was then cleaned and dried and a sterile dressing of Xeroform, 4 x 4's, sterile ABD pad and foam tape was applied. The patient was then transferred to the recovery room in stable condition. The patient tolerated the procedure well with no complications. All needle and sponge counts were correct at the end of the operation. I attest to the content of the Intraoperative Record and any orders documented therein. Any exception s are noted below.
--- NOTE | 2017-07-06 17:55 | PROGRESS NOTE ---
DATE: 07/06/2017 SUBJECTIVE: A 62-year-old gentleman postop from a right total hip replacement. He is doing well. Pain is controlled. No chest pain or shortness of breath. Not feeling dizzy or lightheaded. OBJECTIVE: VITAL SIGNS: Temperature is 36.8. Vital signs stable. GENERAL: Reveals a pleasant, middle-aged male. He is sitting up in bed and talking to his . He looks comfortable. LUNGS: Clear to auscultation. HEART: Has a regular rate and rhythm. ABDOMEN: Soft, nontender, nondistended. EXTREMITIES: Grossly neurovascularly intact except as follows. Examination of the right hip and leg reveals the leg to be well aligned. His hip is located. Leg lengths are equal. He can dorsiflex and plantarflex his foot appropriately. He is neurologically intact. X-RAYS: X-ray of the right hip from recovery room reviewed. It shows a right uncemented total hip arthroplasty. Components looked to be in good position. No signs of problems. ASSESSMENT: A 62-year-old gentleman postop from a right hip replacement, doing well. Pain is controlled. Hip is located. He is neurologically intact. PLAN: 1. DVT prophylaxis including thigh-high TEDs, SCDs, and aspirin twice a day. 2. PT/OT. Weight bear as tolerated. Right total hip protocol. 3. Pain control, doing well with current pain regimen. 4. IV antibiotics x24 hours. 5. Disposition: Plan to discharge to home with some home health once adequately recovered.
[2017-07-06] MEDS: TAMSULOSIN HCL 0.4 MG CAP PO SCH (20:30)
[2017-07-06] MEDS: SENNA 8.6 MG TAB PO SCH (20:31)
[2017-07-06] MEDS: ALUMINUM/MAGNESIUM/SIMETH (MAALOX MAX) 30 ML UDC PO PRN (20:31)
[2017-07-06] MEDS: ASPIRIN 81 MG ECTAB PO SCH (20:31)
[2017-07-06] MEDS: DOCUSATE SODIUM 100 MG CAP PO SCH (20:31)
[2017-07-06] MEDS: ATORVASTATIN 40 MG TAB PO SCH (20:32)
[2017-07-06] MEDS: TAPENTADOL ER 50 MG TABCR PO SCH (20:34)
[2017-07-07 03:21] VITALS: BP 119/69; PULSE 61; TEMP 37; O2SAT 96
[2017-07-07] MEDS: D5W AND 1/2NSS + 20MEQ KCL 1,000 ML IV SCH (03:25)
[2017-07-07] MEDS ORDERED: COUGH DROP (SUGAR FREE) LOZ 24 LOZ/1 BOX LOZ ONE (05:43)
[2017-07-07] MEDS ORDERED: NURSING DECISION MEDICATION ORDER SCH (05:45)
[2017-07-07] MEDS: KETOROLAC TROMETHAMINE 30 MG/ML VIAL IV. SCH ×4 (05:45→23:24)
[2017-07-07] MEDS: ACETAMINOPHEN 500 MG TAB PO SCH ×3 (05:46→22:23)
[2017-07-07] MEDS ORDERED: COUGH DROP (SUGAR FREE) LOZ 24 LOZ/1 BOX LOZ PRN (06:00)
[2017-07-07 06:17] LABS: BASO % 0.3 %; BASO ABS # 0.02 K/uL (0-0.2); EOS ABS # 0.15 K/uL (0-0.5); HEMATOCRIT 36.6 % (42-52); HEMOGLOBIN 12.1 g/dL (14.0-18.0); IG# 0.01 K/uL (0.00-0.02); LYMPH % 22.1 %; LYMPH ABS # 1.67 K/uL (1.2-3.4); MEAN CELL VOLUME 86.5 fL (80-100); MEAN CORPUSCULAR HEMOGLOBIN 28.6 pg (25-34); MEAN CORPUSCULAR HGB CONC 33.1 g/dl (32-36); MEAN PLATELET VOLUME 9.4 fL (7.4-10.4); MONO % 9.5 %; MONO ABS # 0.72 K/uL (0.11-0.59); NEUT ABS # 4.99 K/uL (1.4-6.5); PLATELET COUNT 173 K/uL (130-400); RED CELL DISTRIBUTION WIDTH CV 13.4 % (11.5-14.5); RED CELL DISTRIBUTION WIDTH SD 42.7 fL (36.4-46.3); WHITE BLOOD COUNT 7.56 K/uL (4.8-10.8)
[2017-07-07 07:00] VITALS: BP 135/75; PULSE 67; TEMP 36.9; O2SAT 95
[2017-07-07 07:01] LABS: CALCIUM 7.9 mg/dl (8.5-10.1); CREATININE 0.89 mg/dl (0.60-1.40)
[2017-07-07] MEDS: AVODART-ORDER AWAITING ACTION SCH (07:08)
--- NOTE | 2017-07-07 07:49 | PROGRESS NOTE ---
DATE: 07/07/2017 SUBJECTIVE: This is a 62-year-old gentleman postop day 1 from right hip replacement. He is doing well. Pain is controlled. No chest pain or shortness of breath. Not feeling dizzy or lightheaded. OBJECTIVE: VITAL SIGNS: Temperature 36.9. Vital signs stable. PHYSICAL EXAMINATION: GENERAL: Physical examination shows a pleasant middle-aged male. He is sitting up in bed, looks comfortable. EXTREMITIES: Examination of the right leg reveals the leg lengths to be equal. Hip is located. Dressing is clean, dry, and intact. Thigh is soft and supple. He is neurologically intact. LABORATORY DATA: Labs, hemoglobin 12.1. Hematocrit 36.6. Electrolytes are stable. ASSESSMENT: This is a 62-year-old gentleman postoperative day 1 from right hip replacement, doing well. Pain is controlled. Hip is located. He is neurologically intact. PLAN: 1. DVT prophylaxis including thigh-high TEDs, SCDs, and aspirin twice a day. 2. PT/OT. Weightbear as tolerated. Right total hip protocol. 3. Pain control, doing well with the current pain regimen. 4. Plan and disposition: Plan to discharge to home with some home health once adequately recovered.
--- NOTE | 2017-07-07 08:33 | Anesthesiology Progress Note ---
Anesthesia Post Op Note Date & Time July 07, 2017 at 08:32 Vital Signs Pain Intensity: 0.0 Vital Signs Past 12 Hours Date Time Temp Pulse Resp B/P (MAP) Pulse Ox O2 Delivery O2 Flow Rate FiO2 07/07/17 07:25 Room Air 07/07/17 07:00 36.9 67 19 135/75 (95) 95 Room Air 07/07/17 03:21 37.0 61 16 119/69 (86) 96 Room Air 07/07/17 00:54 Room Air 07/06/17 22:56 37.5 76 18 158/93 (114) 95 Room Air Notes Mental Status: alert / awake / arousable, participated in evaluation Pt Amnestic to Procedure: Yes Nausea / Vomiting: adequately controlled Pain: adequately controlled Airway Patency, RR, SpO2: stable & adequate BP & HR: stable & adequate Hydration State: stable & adequate Anesthetic Complications: no major complications apparent
[2017-07-07] MEDS: TAPENTADOL ER 50 MG TABCR PO SCH ×2 (08:51→21:28)
[2017-07-07] MEDS: ASPIRIN 81 MG ECTAB PO SCH ×2 (08:51→21:24)
[2017-07-07] MEDS: DOCUSATE SODIUM 100 MG CAP PO SCH ×2 (08:51→21:24)
[2017-07-07] MEDS: FERROUS GLUCONATE 324 MG TAB PO SCH ×3 (08:52→17:46)
[2017-07-07] MEDS: PANTOprazole SOD 40 MG TAB PO SCH (08:52)
[2017-07-07] MEDS: MULTIVITAMIN TAB PO SCH (08:52)
[2017-07-07 11:00] VITALS: BP 128/69; PULSE 75; TEMP 36.4; O2SAT 95
[2017-07-07 16:19] VITALS: BP 116/65; PULSE 67; TEMP 37.1; O2SAT 96
[2017-07-07] MEDS ORDERED: DUTASTERIDE 0.5MG PO SCH (21:00)
[2017-07-07] MEDS: TAMSULOSIN HCL 0.4 MG CAP PO SCH (21:24)
[2017-07-07] MEDS: SENNA 8.6 MG TAB PO SCH (21:24)
[2017-07-07] MEDS: ATORVASTATIN 40 MG TAB PO SCH (21:24)
[2017-07-07] MEDS: OXYCODONE HCL IR 5 MG TAB (IMMEDIATE RELEASE) PO PRN ×2 (21:28→22:24)
[2017-07-07] MEDS ORDERED: ASPI-320 PO (21:55)
[2017-07-07] MEDS ORDERED: ACET-24 PO (21:55)
[2017-07-07] MEDS ORDERED: RXC5 PO (21:55)
--- NOTE | 2017-07-07 21:58 | Discharge Instructions ---
Discharge Instructions Date of Service July 07, 2017. Admission Reason for Admission: Right Hip Degenerative Joint Disease Discharge Discharge Diagnosis / Problem: Right Hip Replacement Discharge Goals Goal(s): Decrease discomfort, Improve function, Increase independence, Improve disease control, Therapeutic intervention Activity Recommendations Activity Limitations: per Instructions/Follow-up section (Total Hip Precautions ) Weightbearing Status: Right weightbearing . Instructions / Follow-Up Instructions / Follow-Up ACTIVITY RECOMMENDATIONS: Physical Therapy: * Aggressive physical therapy is not usually needed. You will learn to take care of yourself safely and walk. * Follow the "Hip Precautions Instructions." * In some cases, the social professionals at the hospital will arrange to have a therapist come to your house for the first couple of weeks to help you learn these skills. * You need to practice on your own or with the help of a family member as needed. * When you learn these skills, most of the therapy can be done on your own. Home Exercise: * You were shown a series of exercises in the hospital. Do these exercises three to four times each day including the exercises you were shown in physical therapy. Walking: * Get up and walk several times each day. For the first four weeks, try not to stand or walk for more than one hour at a time. If you do stand or walk for more than one hour, you will not hurt anything, but your leg will likely swell. * As you feel comfortable, you may change from the walker or crutches to a cane and then to independent walking. MEDICATIONS: New Medicine: * You will likely be taking one or more of these medicines: 1. Oxycodone - Take, as directed, when you need it, every four to six hours to control your pain. 2. Aspirin - Thins your blood to lessen the chance of forming a blood clot. * The most common side effects of pain medicine and iron are nausea and constipation. If nausea or constipation is too much of a problem or if you have any questions about your new medicines or doses, call [facility] at [phone]. We will try to help you manage these issues. VERY IMPORTANT TO READ AND REVIEW" Pain: * The immediate post-operative period after hip replacement surgery is often quite painful. * You are given a prescription for pain medicine. You should take it, as directed, when you need it, especially before physical therapy and before going to bed. Pain that interferes with sleep is very common and can last several months. * You will likely need pain medicine for the first two to four weeks. It will not stop all of the pain. The pain will lessen and as you feel better, you may change to milder pain medicine such as Tylenol. * The most common side effects of pain medicine are nausea and constipation, so don't take more than you need. SPECIAL CARE INSTRUCTIONS: TEDs/Elastic Stockings: * The white elastic stockings help limit swelling and prevent blood clots from forming in your legs. The more you wear them, the more they work. * Wear them for six weeks. Prevention of Infection: * Take antibiotics one hour before any dental cleaning, dental work, urological procedure, gastrointestinal procedure or any invasive surgery in order to prevent your new joint from getting infected. * You may get the antibiotics from the doctor performing the procedure or you may call our office at before and we will call in a prescription to the pharmacy of your choice. Things to Watch For: * Drainage from the incision site that occurs more than one week after your surgery. * Severely increased leg pain or swelling. * Increased redness at the incision site. * Fever above 102 degrees Fahrenheit. * Unusual chest pain or shortness of breath. * Unusual pain or burning with urination. Call [facility] at with any of the above problems or if you have any questions about your medicines or recovery. FOLLOW UP VISIT: Make an appointment to see your doctor for approximately two weeks after surgery for a progress check and staple removal by calling the office at . Current Hospital Diet Patient's current hospital diet: Regular Diet Discharge Diet Recommended Diet: Regular Diet Procedures Procedures Performed: Right total hip arthroplasty uncemented Pending Studies Studies pending at discharge: no Medical Emergencies . Who to Call and When: Medical Emergencies: If at any time you feel your situation is an emergency, please call 168 immediately. . Non-Emergent Contact Non-Emergency issues call your: Surgeon . "Provider Documentation" section prepared by Syed Wei. .
[2017-07-07] MEDS: ALUMINUM/MAGNESIUM/SIMETH (MAALOX MAX) 30 ML UDC PO PRN (22:23)
[2017-07-07 23:40] VITALS: BP 129/68; PULSE 74; TEMP 37.6; O2SAT 95
[2017-07-07 23:43] VITALS: TEMP 37.4
[2017-07-08] MEDS: ACETAMINOPHEN 500 MG TAB PO SCH (05:33)
[2017-07-08] MEDS: KETOROLAC TROMETHAMINE 30 MG/ML VIAL IV. SCH (05:34)
[2017-07-08 06:28] VITALS: BP 120/74; PULSE 70; TEMP 36.9; O2SAT 96
[2017-07-08] MEDS: FERROUS GLUCONATE 324 MG TAB PO SCH (07:18)
[2017-07-08] MEDS: PANTOprazole SOD 40 MG TAB PO SCH (07:18)
[2017-07-08] MEDS: DOCUSATE SODIUM 100 MG CAP PO SCH (07:18)
[2017-07-08] MEDS: ASPIRIN 81 MG ECTAB PO SCH (07:19)
[2017-07-08] MEDS: MULTIVITAMIN TAB PO SCH (07:19)
[2017-07-08] MEDS: TAPENTADOL ER 50 MG TABCR PO SCH (07:21)
--- NOTE | 2017-07-08 08:12 | PROGRESS NOTE ---
DATE: 07/08/2017 SUBJECTIVE: A 62-year-old gentleman postop day 2 from right total hip replacement. He is doing well. Pain has been controlled. No chest pain or shortness of breath. Not feeling dizzy or lightheaded. OBJECTIVE: VITAL SIGNS: Temperature is 36.9. Vital signs stable. GENERAL: Physical examination reveals a healthy, pleasant, middle-aged male. He is sitting up at his bedside chair eating breakfast. Looks comfortable. EXTREMITIES: Examination of the right hip reveals the dressing to be clean, dry and intact. Hip is located. Thigh is soft and supple. He is neurologically intact. ASSESSMENT: A 62-year-old gentleman postop day 2 from right total hip replacement, doing well. Pain is controlled. Hip is located. He is neurologically intact. PLAN: 1. DVT prophylaxis including thigh-high TEDs, SCDs, and aspirin twice a day. 2. PT/OT. Weight bear as tolerated. Right total hip protocol. 3. Pain control, doing pretty well with current pain regimen. 4. Disposition: Plan to discharge to home with some home health later today.
[2017-07-08 09:15] VITALS: BP 120/74; PULSE 70; TEMP 36.9; O2SAT 96
== END 2017-07-08 11:50 | disposition home health service (06) | DRG 470 ==
LOC: C.ACU 05:04 → C.3E 06:35 → ENRESERV 09:19
PROVIDERS: ADMIT Orthopaedic Surgery Sports Medicine; ATTEND Orthopaedic Surgery Sports Medicine
PROC: 0SR904A Replacement of Right Hip Joint with Ceramic on Polyethylene Synthetic Substitute, Uncemented, Open Approach (ICD-10-PCS; principal; 2017-07-06 07:00)
DX: M16.11 Unilateral primary osteoarthritis, right hip (principal); N40.0 Benign prostatic hyperplasia without lower urinary tract symptoms; Z79.899 Other long term (current) drug therapy; Z79.82 Long term (current) use of aspirin; Z86.73 Personal history of transient ischemic attack (TIA), and cerebral infarction without residual deficits; Z98.890 Other specified postprocedural states; Z82.61 Family history of arthritis

== ENCOUNTER 2019-08-02 05:33 | Observation (INO) ==
--- NOTE | 2019-07-17 08:31 | Anesthesiology Consultation ---
Date of Service July 17, 2019 Assessment & Plan (1) Encounter for pre-operative examination: Chart Review Chart Review: Acceptable Risk for Surgery and Patient seen in Pre Admission Testing Teaching & Discussion Instructed NPO after midnight before surgery, except medications with 15 cc of water. Medication instructions provided according to the PAT guidelines. History Surgery Operation Date: 08/02/19 07:00 Proposed Procedures p Left Total Hip Arthroplasty - Syed Wei MD Height/Weight Height: 5 ft 11 in Weight: 93.3 kg Allergies Allergy/AdvReac Type Severity Reaction Status Date / Time cat dander Allergy Unknown Sneezing Verified 07/16/19 10:00 pollen extracts Allergy Unknown Sneezing Verified 07/16/19 10:00 Medications Home Medications Medication Instructions Recorded Confirmed Last Taken atorvastatin 80 mg PO QPM 03/14/18 07/16/19 03/13/18 dutasteride 0.5 mg capsule 0.5 mg PO QPM #90 cap 12/04/18 07/16/19 Unknown tamsulosin 0.4 mg capsule 0.4 mg PO QPM #90 cap 12/04/18 07/16/19 Unknown acetaminophen [Tylenol Arthritis 1,300 mg PO DAILY PRN 04/04/19 07/16/19 Unknown Pain] amlodipine [Norvasc] 5 mg PO QPM 04/04/19 07/16/19 Unknown clopidogrel 75 mg PO QPM 04/04/19 07/16/19 Unknown corn-callus cushion [Ashippun Cushion] 07/05/19 07/16/19 Unknown salicylic acid 1 applic TOPICAL UD PRN 07/05/19 07/16/19 Unknown Past Medical History Medical History (Updated 07/17/19 @ 11:36 by Kj Valero) Amnesia Transient episode 02/2018. No acute intracranial abnormality on MRI. Arthritis BACK Arthritis of left hip Asthma "EXCERCISE INDUCED" - NO INHALERS Benign prostatic hyperplasia (Chronic) Cerebrovascular disease (Chronic) TIA symptoms September 2016. MRI 10/07/16 left occipital and parietal lesions. Carotid duplex- left ICA stenosis. Left carotid endarterectomy 10/10/16. Transient amnesia 03/14/18. MRI showed moderate small vessel ischemic changes. Dyslipidemia (Chronic) Enlarged prostate High prostate specific antigen (PSA) History of skin cancer BASAL CELL FACE AND REMOVED Hypertension (Chronic) Kidney stone DX 5-7 YRS AGO, NO PROBLEMS WITH Left carotid artery stenosis (Resolved) Prediabetes (Chronic) A1C 6.5% on pre op labs in March. Updated A1C 06/2019 6.3%. TIA (transient ischemic attack) (Resolved) HX OF X2 - 2016 AND 2019 Varicose veins of both lower extremities Exercise / Class Metabolic Activity 1 > 8 Run/Swim/Ski/Tennis (Pt reports regular swimming, can do 1/4-1/2 mile) Past Surgical History Surgical History History of colonoscopy History of herniorrhaphy History of right hip replacement Status post carotid endarterectomy (Chronic) LEFT - Dr. Toledo 10/11/16 Past Anesthesia History No Hx of Anesthesia Complications (other than urinary retention post op) and No Family Hx of Anesthesia Complications History of PONV No Hx of PONV and No Hx of Motion Sickness Social History Smoking Status: Never smoker Do You Dip or Chew Tobacco: No Hx Alcohol Use: Yes Alcohol type: wine alcohol intake frequency: holidays/special occasions only Hx Substance Use: No substance use type: does not use Review of Systems Pt denies any recent chest pain, shortness of breath, palpitations, cough, fever or URI. Physical Exam Vital Signs BP: 106/71 P: 70bpm SPO2: 94% RA T: 98.5 F R: 16 ENMT Mouth: + dental restorations (cap on upper front incisor) and + poor dentition; no loose teeth Thyromental Distance: > or= 3.5 Finger Breadths (4) Mallampati Class: I Neck normal visual inspection and + limited neck extension L CEA scar Respiratory normal respiratory effort Auscultation: lungs clear to auscultation bilaterally Cardiovascular Rate/Rhythm: regular rate and regular rhythm Heart Sounds: no murmur Vessels: no carotid bruit Extremities: no edema Testing Laboratory Results 07/17/19 08:46 PT 11.1 Seconds (9.0-12.0) 07/17/19 08:46 INR 1.1 (0.9-1.1) 07/17/19 08:46 APTT 29.5 Seconds (21.0-31.0) 07/17/19 08:46 Blood Type A Positive 07/17/19 08:46 Antibody Screen NEGATIVE 07/17/19 08:46 07/03/19 WBC: 4.93 H/H: 14.6/44.7 PLATELETS: 222 Other Testing Electrocardiogram Date: 04/08/19 Findings: + SB @ (54bpm) Chest X-Ray Date: 04/08/19 Findings: + NAD Echocardiogram Date: 03/16/18 EF: 60-65% Normal LV systolic functin with normal LV relaxation. Mild MR and TR. PAP 37mmH g. No intraatrial shunt.
[2019-07-17 10:40] LABS: BUN Creatinine Ratio 20.5 (10-20); Blood Urea Nitrogen 22 mg/dl (7-18); Calcium 8.8 mg/dl (8.5-10.1); Carbon Dioxide 29 mmol/L (21-32); Chloride 106 mmol/L (98-107); Creatinine Clr Calc Pharmacy 82.2 ml/min; Est GFR (African American) 85.5; Est GFR (Non-African American) 73.8; Glucose 106 mg/dl (70-99); Potassium 4.6 mmol/L (3.5-5.1); Sodium 139 mmol/L (136-145)
[2019-07-17 10:41] LABS: INR 1.1 (0.9-1.1); Partial Thromboplastin Ratio 1.1; Partial Thromboplastin Time 29.5 Seconds (21.0-31.0); Prothrombin Time 11.1 Seconds (9.0-12.0)
[2019-07-17 10:44] LABS: C Reactive Protein < 0.29 mg/dl (0-0.29)
--- NOTE | 2019-07-26 13:23 | History and Physical Report ---
DATE OF ADMISSION: 08/02/2019 CHIEF COMPLAINT: Left hip pain, discomfort, and stiffness. HISTORY OF PRESENT ILLNESS: The patient is a 64-year-old gentleman who is about 2 years out from right hip replacement. He has done well with his right hip. Over the past year to year and a half, he has developed increased pain and discomfort in his left hip, very similar to the other side. It has become more debilitating over time. He describes groin pain, thigh pain, pain that radiates down to his knee but no further. He limps pretty much all the time and more as the day goes on. He has difficulty putting his shoes and socks on. He has difficulty going up and down steps. He has had great results from his right hip surgery and would like to have his left hip replaced. Of note, the patient has significant back issues as well. He had a history of prostate biopsy in the past as well. PAST MEDICAL HISTORY: 1. Elevated cholesterol. 2. History of TIAs on Plavix without any sequelae. 3. Arthritis. 4. Low back pain/sciatica. 5. Obesity. 6. Kidney stones. 7. BPH. PAST SURGICAL HISTORY: 1. Hiatal hernia repair. 2. Left carotid endarterectomy. 3. Right foot surgery. 4. Skin cancer removal. 5. Right hip replacement done 07/06/2017. ALLERGIES: HAYFEVER AND DUST. CURRENT MEDICINES: 1. Tylenol. 2. Norvasc 5 mg. 3. Atorvastatin 80 mg. 4. Plavix 75 mg. 5. Dutasteride 0.5 mg in the evening. 6. Flomax 0.4 mg in the evening. SOCIAL HISTORY: A 64-year-old male. He lives in [place]. 1-2 drinks per week. Does not smoke. FAMILY HISTORY: Noncontributory. REVIEW OF HISTORY: Negative for diabetes, neurologic problem, vascular problems or bleeding disorders. Denies any chest pain or shortness of breath. No DVT or PE. He is on Plavix for his history of TIAs. PHYSICAL EXAMINATION: GENERAL: Shows a pleasant, middle-aged male, looks to be in reasonably good health. HEENT: Benign. NECK: Supple, no lymphadenopathy. LUNGS: Clear to auscultation. HEART: Has a regular rate and rhythm. ABDOMEN: Soft, nontender, nondistended. EXTREMITIES: Grossly neurovascularly intact except as follows: Examination of left hip reveals the patient walks with an antalgic gait. He is about a 0.5 cm short on the left side compared to the right. He has very limited hip motion. He can internally rotate to neutral at best and it is painful. Negative straight leg raise. No knee effusion. X-RAYS: X-rays of the left hip were reviewed. Shows moderate to advanced left hip DJD. He has fairly concentric disease with cystic changes in both the femoral head and acetabulum. He has osteophytes off the acetabulum as well as around the femoral head. The right hip replacement looks to be in good position. ASSESSMENT: 64-year-old gentleman status post right hip replacement 2 years ago with moderate to advanced left hip disease. He has failed conservative treatment and it is limiting his activities. He would like to have his left hip fixed. He does have some underlying back issues as well and was fully aware this is not going to take the back issues away. PLAN: We are going to take him to the operating room and do a left total hip replacement. The risks and benefits of this procedure were explained to the patient including but not limited to DVT, PE, , infection, neurological injury, vascular injury, bleeding problems, pain, limited range of motion, stiffness, failure to relieve symptoms, incomplete relief of symptoms, need for further surgery in future, fracture, leg length inequality, nerve palsy, need for blood transfusion and persistent back pain. The patient understands and desires to proceed. Informed consent was obtained. The patient had been scheduled previously but canceled due to the Covid epidemic. He is going to stop his Plavix a week before. We will use Plavix for DVT prophylaxis as well as a baby aspirin. He is planning to be discharged to home using [facility] home health program.
[2019-08-02] MEDS ORDERED: GABAPENTIN 600 MG DOSE PO SCH (06:00)
[2019-08-02] MEDS ORDERED: SCOPOLAMINE 1.5 MG TDSY TD SCH (06:00)
[2019-08-02] MEDS ORDERED: METOCLOPRAMIDE HCL 10 MG TABLET PO SCH (06:00)
[2019-08-02] MEDS ORDERED: CEFAZOLIN 2000MG 2,000 MG/15 ML SYR IV SCH (06:00)
[2019-08-02] MEDS ORDERED: FAMOTIDINE 20 MG TAB PO SCH (06:00)
[2019-08-02] MEDS ORDERED: ACETAMINOPHEN 500 MG TAB PO SCH (06:00)
[2019-08-02] MEDS ORDERED: TRANEXAMIC ACID 1,000 MG **IV Pre-op IV SCH (06:00)
[2019-08-02] MEDS ORDERED: LR 500ML BOLUS, THEN 15ML/HR IV SCH (06:00)
[2019-08-02] MEDS ORDERED: LR 60ML/HR IV SCH (06:00)
[2019-08-02] MEDS ORDERED: ePHEDrine sulfate 50 MG/ML SYR IM ONE (06:25)
[2019-08-02] MEDS ORDERED: PROPOFOL IV EMULSION 10 MG/ML 20 ML VIAL IV ONE (06:25)
[2019-08-02] MEDS ORDERED: BUPIVACAINE 0.5 % 5 MG/1 ML PF 10ML VIAL INFIL ONE (06:25)
[2019-08-02] MEDS ORDERED: fentaNYL citrate 100 MCG/2 ML VIAL IV ONE (06:25)
[2019-08-02] MEDS ORDERED: LIDOCAINE HCL 2% 2 ML VIAL/AMP(20MG/ML) INFIL ONE (06:25)
[2019-08-02] MEDS ORDERED: MIDAZOLAM HCL 1 MG/ML 2ML VIAL IV ONE (06:25)
[2019-08-02] MEDS ORDERED: MoRPHine SULFATE PF 1 MG/ML 10 ML AMP/VIAL EPI ONE (06:25)
[2019-08-02] MEDS ORDERED: BUPIVACAINE 0.5 % 5 MG/1 ML MPF 30ML VIAL ONE (06:39)
[2019-08-02] MEDS ORDERED: EPINEPHrine INJ 1 MG/ML AMP ONE (06:39)
[2019-08-02] MEDS ORDERED: BACITRACIN INJ 50,000 UNIT VIAL ONE (06:39)
--- NOTE | 2019-08-02 06:51 | History & Physical Bridge Note ---
Date of Service August 02, 2019 History & Physical Bridge Note I have examined the patient, reviewed the History & Physical and in the interval since the performance of the History & Physical I have noted the following changes of clinical significance: no changes noted
[2019-08-02] MEDS ORDERED: ATROPINE SULFATE 0.1 MG/ML 10ML SYR IV PRN (06:53)
[2019-08-02] MEDS ORDERED: HYDROmorphone INJ 2 MG/ML SYR/VIAL IV PRN (06:53)
[2019-08-02] MEDS ORDERED: fentaNYL citrate 100 MCG/2 ML VIAL IV PRN (06:53)
[2019-08-02] MEDS ORDERED: ePHEDrine sulfate 50 MG/ML AMP IV PRN ×2 (06:53→09:57)
[2019-08-02] MEDS ORDERED: ONDANSETRON INJ 2 MG/ML 2 ML VIAL IV PRN ×2 (06:53→09:57)
--- NOTE | 2019-08-02 08:25 | Post Operative Brief Note ---
PG Immediate Post Op with CF Date of Surgery August 02, 2019 Pre & Post Diagnosis Operation Date: 08/02/19 07:00 Pre-Op Diagnosis: Left Hip Advanced Degenerative Joint Disease Post-Op Diagnosis: Left Hip Advanced Degenerative Joint Disease I identified the patient and participated in the time-out.: Yes Procedure Operation Date: 08/02/19 07:00 Actual Procedures p Left Total Hip Arthroplasty--Uncemented(Left) - Syed Wei MD Surgeon Syed Wei MD Litharge Mill Operator Vikki, PAC Estimated Blood Loss 200 Findings Consistent with Post-Op Diagnosis Fluids 700 cc Specimens Specimen Description: A. Left Femoral Head Drains Olivia Catheter Anesthesia Type Spinal MAC Complications none Disposition Accompanied Patient To Recovery: Yes Disposition: Recovery Room
--- NOTE | 2019-08-02 09:00 | XRay Report ---
XR hip 1V LT w pelvis HISTORY: 64 years-old Male IN PACU - A/P PELVIS and LATERAL HIP left hip total joint arthroplasty COMPARISON: Pelvis radiograph 12/13/2018 TECHNIQUE: AP view of the pelvis with crosstable lateral view of the left hip FINDINGS: Unchanged appearance of the right hip total joint arthroplasty with dystrophic linear calcifications noted within the medial tissues adjacent to the lesser trochanter. Left hip total joint arthroplasty demonstrates satisfactory alignment. No acute fracture or retained foreign body. Lateral left hip ski n laura are noted along with expected postsurgical soft tissue swelling and deep tissue air. Phlebo liths of the pelvis. Olivia catheter. IMPRESSION: Left hip total joint arthroplasty with expected postoperative findings. ACT 112: Negative or not required by law. The above report was generated using voice recognition software. It may contain grammatical, syntax o r spelling errors. Electronically signed by: Rigo Wang M.D. 08/02/2019 8:58 AM
--- NOTE | 2019-08-02 09:06 | Anesthesiology Progress Note ---
Date of Service August 02, 2019 Anesthesia Post Procedure Vital Signs Vital Signs: Temp Pulse Pulse Resp BP Pulse Ox 08/02/19 08:55 57 L 14 113/55 L 100 08/02/19 08:45 63 12 108/80 99 08/02/19 08:35 73 19 121/61 97 08/02/19 08:26 36.0 C L 71 16 102/47 L 93 08/02/19 06:27 36.6 C 62 18 125/78 95 Transfer of Care Handoff Completed per policy Notes Mental Status: alert / awake / arousable and participated in evaluation Patient Amnestic to Procedure: Yes Nausea / Vomiting: adequately controlled Pain: adequately controlled Airway Patency, RR, SpO2: stable & adequate BP & HR: stable & adequate Hydration State: stable & adequate Anesthetic Complications: no major complications apparent and Pt Satisfied with anesthetic care
[2019-08-02] MEDS ORDERED: bisacodyL 10 MG SUPP PR PRN (09:54)
[2019-08-02] MEDS ORDERED: ALUMINUM/MAGNESIUM SUSP 30 ML UDC PO PRN (09:54)
[2019-08-02] MEDS ORDERED: MAGNESIUM HYDROXIDE SUSP 30 ML UDC PO PRN (09:54)
[2019-08-02] MEDS ORDERED: LACTATED RINGER'S 500 ML IV PRN (09:57)
[2019-08-02] MEDS ORDERED: NALOXONE HCL 0.08 MG in SYRINGE 1.8 ML IV PRN (09:57)
[2019-08-02] MEDS ORDERED: PROMETHAZINE HCL 25 MG in SODIUM CHLORIDE 0.9% 50 ML IV PRN (09:57)
[2019-08-02] MEDS ORDERED: NALOXONE HCL 0.4 MG/1 ML VIAL/CARP IV PRN (09:57)
[2019-08-02] MEDS ORDERED: DiphenhydrAMINE HCL 50 MG/ML VIAL IV PRN (09:57)
[2019-08-02] MEDS ORDERED: MoRPHine SULFATE PF 1 MG/ML 10 ML AMP/VIAL INT SPINAL ONE (09:57)
[2019-08-02] MEDS ORDERED: NALBUPHINE HCL INJ 10 MG/ML AMP IV PRN (09:57)
[2019-08-02] MEDS ORDERED: MoRPHine SULFATE 2 MG/ML CARP IV PRN (09:57)
[2019-08-02] MEDS ORDERED: NALOXONE HCL 1 MG in SODIUM CHLORIDE 0.9% 1000ML 1,000 ML IV PRN (09:57)
[2019-08-02] MEDS ORDERED: NO NARCOTICS OR SEDATIVES SCH (10:00)
[2019-08-02] MEDS ORDERED: SODIUM CHLORIDE 0.9% 1000ML 1,000 ML IV SCH (10:00)
[2019-08-02] MEDS ORDERED: DC INTRASPINAL MORPHINE SCH (10:00)
[2019-08-02] MEDS: SODIUM CHLORIDE 0.9% 1000ML 1,000 ML IV SCH ×2 (10:17→19:59)
--- NOTE | 2019-08-02 11:04 | Operative Report ---
Post Operative Report Pre & Post Diagnosis Operation Date: 08/02/19 07:00 Pre-Op Diagnosis: Left Hip Advanced Degenerative Joint Disease Post-Op Diagnosis: Left Hip Advanced Degenerative Joint Disease I identified the patient and participated in the time-out.: Yes Procedure Operation Date: 08/02/19 07:00 Actual Procedures p Left Total Hip Arthroplasty--Uncemented(Left) - Syed Wei MD Surgeon Syed Wei MD Waterproofer Helper Vikki, PAC Estimated Blood Loss 200 Findings Consistent with Post-Op Diagnosis Operative findings revealed advanced left hip DJD. He had grade 4 changes of the femoral head and acetabulum. Not much in the way of osteophyte formation. Moderate sized joint effusion. Fluids 700 cc. Specimens Left femoral head sent for pathology. Drains None. Anesthesia Type Spinal MAC Complications none Disposition Accompanied Patient To Recovery: Yes Disposition: Recovery Room Indications Patient is 64-year-old gentleman is had a long history of hip problems. He underwent a right hip replacement 2 years ago and is done well from this. Over the past year he is developed increased pain discomfort in his left hip. X-ray showed progressive left hip arthritis. He elected proceed with surgical treatment. Description of Procedure Operative implants consisted of: 1. Biomet G7 size 54 mm acetabular shell. 2. 6.5 cancellus acetabular screws 1 of 35 mm in length and 1 to 20 mm length. 3. Cisco hole eliminator. 4. Highly cross-linked polyethylene liner with a 54 mm outer diameter and 36 mm inner diameter. 5. Nora Corail size 11 KLA femoral stem. 6. +5/36 mm ceramic articular ball. Patient was taken to the operating room identified and placed on the operating table supine position protectors were properly padded. IV antibiotics arrived by anesthesia team. A spinal anesthetic had been implemented in the holding area. Olivia catheter was placed in sterile fashion. The patient then placed in the right lateral decubitus position. Axillary roll was placed. A Stulberg hip positioner was used for positioning. The left hip and leg were then prepped and draped in usual sterile fashion. A posterior lateral approach to the left hip was then performed to a curvilinear incision centered over the greater trochanter. Sharp dissection was carried through subcutaneous tissue down to level the IT band gluteal fascia. The IT band gluteal fascia then incised longitudinally in line with the skin incision. The underlying greater trochanter bursa was excised. Piriformis and external rotators were tagged and taken off the posterior aspect of the hip joint capsule. Great care was taken throughout the procedure protect the sciatic nerve at all times. A posterior capsulotomy was then performed leaving a large flap for later repair. Hip was internally rotated and dislocated. Femoral neck osteotomy cut was made with Final Cut 10 mm above the lesser trochanter. Femoral head was removed and sent for pathology. The femur was retracted anteriorly. Attention drawn the acetabulum. The acetabular labrum was excised. The pulmonary fat was excised. Sequential reaming the acetabular was then performed given the size 45 and progressing up to a 53. A 54 mm Biomet G7 acetabular shell was then placed in about 40 degrees lateral opening and 20 degrees of anteversion. It was fixed with two 6.5 cancellus acetabular screws a trial liner was placed. A small anterior osteophyte was removed. Attention drawn the femur. The proximal femur was entered with a cookie-cutter followed by canal finder. The then began broaching with a size 8 and progressed up to 11. Got excellent fit and 11. The calcar reamer was used to smooth and off the calcar. Then trialed the hip and the +5 articular ball provide full stability in full extension and external rotation and flexion to 9 degrees into rotation over 50 degrees. Leg lengths appeared appropriate. Soft tissue tension seemed appropriate. I elect to place these implants. All trial implants were removed. An apex hole limited was placed. Highly cross-linked polyethylene liner was placed. A [place] KLA size 11 femoral stem was impacted in position. +5/36 mm ceramic articular ball was placed. Hip was located once again found to be stable. Attention drawn toward closing. The wounds irrigated cups ounce pulsatile lavage solution. I did inject locally with 60 cc of half percent Marcaine with epinephrine. The posterior capsule and external rotators were then repaired through drill holes in the posterior trochanter with #2 Tycron sutures through drill holes. The IT band gluteal fascia then closed with #1 PDS suture running fashion with subcutaneous tissue then closed with 2 layers the deep layer #1 Vicryl suture and subcutaneous tissue with 2-0 Dexon suture in a buried interrupted fashion the skin was closed skin laura. Leg was then cleaned dried and sterile dressing composed Xeroform, 4 x 4's, ABD pad and foam tape was applied. Patient then transferred to the recovery room in stable condition. Patient tolerated the procedure well and there were no complications. I attest to the content of the Intraoperative Record and any orders documented therein. Any exceptions are noted below.
[2019-08-02] MEDS: MULTIVITAMIN TAB PO SCH (12:27)
[2019-08-02] MEDS: KETOROLAC 30 MG/ML VIAL IV SCH ×2 (12:27→17:45)
[2019-08-02] MEDS: DOCUSATE SODIUM 100 MG CAP PO SCH ×2 (12:27→19:37)
[2019-08-02] MEDS ORDERED: TRANEXAMIC ACID / 0.7% NACL 1,000 MG/100 ML BAG IV SCH (14:28)
[2019-08-02] MEDS: ACETAMINOPHEN 500 MG TAB PO SCH ×2 (14:35→22:33)
[2019-08-02] MEDS: CEFAZOLIN 2000MG 2,000 MG/15 ML SYR IV SCH (15:04)
[2019-08-02] MEDS: CHECK SCOPOLAMINE PATCH PLACEMENT SCH (17:44)
[2019-08-02] MEDS: ASCORBIC ACID 500 MG TAB PO SCH (17:46)
[2019-08-02] MEDS: FERROUS GLUCONATE 324 MG TAB PO SCH (17:46)
[2019-08-02] MEDS ORDERED: AMLODIPINE BESYLATE 5 MG TAB PO SCH (21:00)
[2019-08-02] MEDS ORDERED: SENNA 8.6 MG TAB PO SCH (21:00)
[2019-08-02] MEDS ORDERED: ATORVASTATIN 40 MG TAB PO SCH (21:00)
[2019-08-02] MEDS ORDERED: TAMSULOSIN HCL 0.4 MG CAP PO SCH (21:00)
[2019-08-03] MEDS: CEFAZOLIN 2000MG 2,000 MG/15 ML SYR IV SCH (00:15)
[2019-08-03] MEDS: KETOROLAC 30 MG/ML VIAL IV SCH ×3 (00:17→09:49)
[2019-08-03] MEDS ORDERED: COUGH DROP (SUGAR FREE) LOZ 24 LOZ/1 BOX BUCCAL ONE (00:31)
[2019-08-03] MEDS: CHECK SCOPOLAMINE PATCH PLACEMENT SCH ×2 (02:44→09:00)
[2019-08-03] MEDS ORDERED: NALOXONE HCL 0.4 MG/1 ML VIAL/CARP IV PRN (03:57)
[2019-08-03] MEDS ORDERED: ONDANSETRON INJ 2 MG/ML 2 ML VIAL IV PRN (03:57)
[2019-08-03] MEDS ORDERED: METOCLOPRAMIDE HCL INJ 5 MG/ML 2 ML VIAL IV PRN (03:57)
[2019-08-03] MEDS ORDERED: TRAMADOL HCL 50 MG TABLET PO PRN (03:57)
[2019-08-03] MEDS ORDERED: HYDROmorphone INJ 0.5 MG/0.5 ML SYR IV PRN (03:57)
[2019-08-03 06:00] LABS: Basophils # (auto) 0.02 K/uL (0-0.2); Basophils % (auto) 0.3 %; Eosinophils # (auto) 0.17 K/uL (0-0.5); Eosinophils % (auto) 2.3 %; Hemoglobin 12.6 g/dL (14.0-18.0); Immature Granulocytes # (auto) 0.01 K/uL (0.00-0.02); Immature Granulocytes % (auto) 0.1 %; Lymphocytes # (auto) 1.22 K/uL (1.2-3.4); Lymphocytes % (auto) 16.2 %; Mean Corpuscular Hemoglobin 28.2 pg (25-34); Mean Corpuscular Hgb Conc 32.3 g/dL (32-36); Mean Corpuscular Volume 87.2 fL (80-100); Mean Platelet Volume 10.1 fL (7.4-10.4); Monocytes # (auto) 0.63 K/uL (0.11-0.59); Monocytes % (auto) 8.4 %; Neutrophils # (auto) 5.49 K/uL (1.4-6.5); Neutrophils % (auto) 72.7 %; Platelet Count 175 K/uL (130-400); RDW Coefficient of Variation 13.9 % (11.5-14.5); RDW Standard Deviation 44.5 fL (36.4-46.3); Red Blood Count 4.47 M/uL (4.7-6.1); White Blood Count 7.54 K/uL (4.8-10.8)
[2019-08-03] MEDS: ACETAMINOPHEN 500 MG TAB PO SCH (06:02)
[2019-08-03] MEDS: SODIUM CHLORIDE 0.9% 1000ML 1,000 ML IV SCH (06:03)
[2019-08-03 06:23] LABS: BUN Creatinine Ratio 12.9 (10-20); Calcium 8.2 mg/dl (8.5-10.1); Creatinine Clr Calc Pharmacy 108.2 ml/min; Est GFR (African American) 109.4; Est GFR (Non-African American) 94.4; Potassium 3.7 mmol/L (3.5-5.1)
[2019-08-03] MEDS ORDERED: CLOPIDOGREL BISULFATE 75 MG TAB PO SCH (09:00)
[2019-08-03] MEDS: ASCORBIC ACID 500 MG TAB PO SCH (09:00)
[2019-08-03] MEDS: FERROUS GLUCONATE 324 MG TAB PO SCH (09:00)
--- NOTE | 2019-08-03 09:00 | Progress Notes ---
DATE: 08/03/2019 SUBJECTIVE: A 64-year-old gentleman postop day 1 from left hip replacement. He is doing well. Pain is controlled. He is getting around reasonably well. No chest pain or shortness of breath. Not feeling dizzy or lightheaded. He would really like to go home this afternoon if he is doing okay. OBJECTIVE: VITAL SIGNS: Temperature 37.5. Vital signs stable. GENERAL: Shows a pleasant, middle-aged male. He is sitting up in his bedside chair, looks comfortable. MUSCULOSKELETAL: Examination of the left hip reveals the dressing to be clean, dry and intact. Leg lengths were equal. Hip is located. Thigh is soft and supple. He is neurologically intact. LABORATORY DATA: Hemoglobin 12.6. Hematocrit 39.0. Electrolytes are stable. ASSESSMENT: A 64-year-old gentleman postop day 1 from left hip replacement, doing pretty well. Pain is controlled. Hip is located. He is neurologically intact. PLAN: 1. DVT prophylaxis include thigh-high TEDs, SCDs and back on his Plavix starting this morning. 2. PT/OT. Weight bear as tolerated. Left total hip protocol. 3. Pain control, doing well with current pain regimen. 4. Disposition: Plan to discharge to home with some home health likely later today if he is doing okay.
[2019-08-03] MEDS: DOCUSATE SODIUM 100 MG CAP PO SCH (09:47)
[2019-08-03] MEDS: MULTIVITAMIN TAB PO SCH (09:48)
--- NOTE | 2019-08-09 15:49 | Discharge Summary ---
Date of Service August 09, 2019 Admission HPI Per Admitting Provider Documented in the H&P Admission Exam (Per Admitting) Constitutional Documented in the H&P Discharge Data Consultations 08/03/19 08:00 Consult Case Management - Discharge Planning Routine Procedures Performed Operation Date: 08/02/19 07:00 Actual Procedures p Left Total Hip Arthroplasty--Uncemented(Left) - Syed Wei MD Hospital Course (1) Status post total hip replacement, left: 64-year-old male admitted on 08/02/2019 underwent total hip replacement. He tolerated procedure well and there were no complications. He is transferred to the PACU postoperatively and later to the orthopedic floor. He is given Ancef for antibiotic prophylaxis. He was given RUPERTO stockings, SCDs, and Plavix for DVT prophylaxis. His hemoglobin, hematocrit, and vital signs were monitored during his hospital stay remained stable. He not acquiring blood transfusions. There are no complications. Postoperative day 1 he is tolerating a regular diet. Pain is controlled with oral pain medicine and he is participating in physical therapy. On postop day 1 he was discharged home set up with home health services. He was given printed discharge instruction as well as new prescriptions for extra strength Tylenol and tramadol. Continue his home medications. Continue physical therapy. He is weightbearing as tolerated. Total hip precautions. RUPERTO stockings. Follow-up proximately 2 weeks postop or sooner if any problems or concerns. Coding Level of Care Code None Diagnoses Status post total hip replacement, left Z96.642
== END 2019-08-03 13:59 | disposition home health service (06) ==
LOC: ASU 05:33 → 3E 05:33